=== PATIENT | female | born 1980 | race Caucasian/White ===

== ENCOUNTER 2019-12-14 14:16 | Emergency (ER) | payer OTHER, BC, SELFPAY ==
--- NOTE | ~2019-12-14 | XR_ITS ---
EXAMINATION: XR shoulder LT min 2V INDICATION: Left shoulder pain TECHNIQUE: Four views of the left shoulder are submitted. COMPARISON: None FINDINGS: Normal alignment. No fracture. Glenohumeral and acromioclavicular joint spaces are normal. Soft tissues are unremarkable. IMPRESSION: No acute osseous abnormality. Reviewed, dictated and finalized at location A. ENT MANAGER
[2019-12-14 14:59] VITALS: BP 127/93; PULSE 91; RESP 18; TEMP 37.2; O2SAT 100
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
[2019-12-14 16:19] VITALS: BP 120/80; PULSE 80; RESP 18; O2SAT 98
== END 2019-12-14 16:20 | disposition home or self-care (01) ==
PROVIDERS: Emergency Provider General Practice; PCP Obstetrics & Gynecology
DX: S16.1XXA Strain of muscle, fascia and tendon at neck level, initial encounter (principal); M25.512 Pain in left shoulder; V49.40XA Driver injured in collision with unspecified motor vehicles in traffic accident, initial encounter
CPT/HCPCS: 73030; 99283

== ENCOUNTER 2020-04-21 17:23 | Outpatient (CLI) | payer BC, SELFPAY ==
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
== END 2020-04-21 17:24 | disposition home or self-care (01) ==
PROVIDERS: Visit Provider Orthopaedic Surgery
DX: S40.012A Contusion of left shoulder, initial encounter (principal)
CPT/HCPCS: 73221

== ENCOUNTER 2020-06-13 09:35 | Outpatient (CLI) | payer BC, SELFPAY ==
--- NOTE | ~2020-06-13 | US_ITS ---
US pelvic complete w TV DATE: 06/13/2020 10:27 INDICATION: Pelvic and perineal pain TECHNIQUE: Real-time imaging via transabdominal and transvaginal approaches COMPARISON: None FINDINGS: The uterus measures approximately 11.1 cm height, 4.2 cm AP dimension. The uterus is retrof lexed. The central endometrial echo complex measures 9 mm AP dimension. The right ovary measures 2.5 x 2.7 x 1.8 cm. The left ovary measures 4.5 x 3.4 x 2.8 cm. There are mu ltiple left ovarian cysts, largest measuring 2.1 x 1.5 x 1.7 cm. There is blood flow to both ovaries. No pelvic mass or abnormal pelvic fluid collection is noted otherwise. IMPRESSION: Left ovarian cysts measuring up to 2.1 cm maximal dimension Reviewed, dictated and finalized at Location A. Reviewed, dictated and finalized at location A.
== END 2020-06-13 09:36 | disposition home or self-care (01) ==
PROVIDERS: Visit Provider Obstetrics & Gynecology
DX: R10.2 Pelvic and perineal pain (principal); N83.202 Unspecified ovarian cyst, left side
CPT/HCPCS: 76830; 76856

== ENCOUNTER 2020-06-23 01:44 | Outpatient (CLI) | payer BC, SELFPAY ==
[2020-06-23 18:23] LABS: SARS-CoV-2 RNA PCR Negative
== END 2020-06-23 01:45 | disposition home or self-care (01) ==
LOC: ANHCOVIDDT 01:45
PROVIDERS: Visit Provider Surgery
DX: Z01.812 Encounter for preprocedural laboratory examination (principal); Z20.828 Contact with and (suspected) exposure to other viral communicable diseases
CPT/HCPCS: 87635; C9803; U0003

== ENCOUNTER 2020-06-25 01:13 | Day surgery (SDC) | payer BC, SELFPAY ==
[2020-06-09 13:55] VITALS: BMI 27.9
--- NOTE | 2020-06-24 11:30 | WPDANESEPPF ---
Anes - Initial Pre Proc Eval Procedure: Operation Date: 06/25/20 12:00 Proposed Procedures p Left Inguinal Hernia Repair - Jason Schwartz MD Date/Time: 06/24/20 11:30 Surgeon: Jason Schwartz MD Pre Op Diagnosis: left inguinal hernia Patient Data Age: 40 Gender: F Height: 1.68 m Weight: 78.47 kg Allergies Allergy/AdvReac Type Severity Reaction Status Date / Time No Known Allergies Allergy Mild Verified 06/25/20 10:45 Home Medications Medication Instructions Recorded Confirmed Type thyroid (pork) 60 mg tablet 60 mg PO DAILY #90 tablet 05/07/20 06/25/20 Rx berberine-herbal comb no.18 2 cap PO DAILY 06/08/20 06/25/20 History cholecalciferol (vitamin D3) 25 25 mcg PO DAILY 06/08/20 06/25/20 History mcg (1,000 unit) capsule coenzyme Q10 30 mg capsule 30 mg PO DAILY 06/08/20 06/25/20 History niacin 500 mg tablet,extended 500 mg PO QAM 06/08/20 06/25/20 History release L.acid-L.casei-B.bif-B.esme-FOS 1 cap PO DAILY 06/09/20 06/25/20 History [Probiotic Blend] Patient hx anesthesia problems: none Family hx anesthesia problems: none PMFSH Social History Social History Smoking status: Never smoker Second hand tobacco smoke exposure: No Alcohol intake: current Substance use: never 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 Gender identity (if verbalized by the patient): Female Spiritual care concerns: No Anes - Eval Final PreProcedure Day of Procedure 06/24/20 11:30 Patient weight: overweight Heart: regular rate and rhythm Lungs: clear to auscultation and normal air movement Airway: Mallampati scale class II Neurological: alert and oriented Last oral intake: >/= 8 hours ASA classification: II Emergent: no Anesthetic plan: proceed Anesthesia type and monitoring: general GIVS and standard monitoring Informed Consent: The patient's anesthetic plan and its attendant risks and benefits were discussed with the patient/family/POA. Questions were solicited and answers provided to the satisfaction of the patient/family/POA.
[2020-06-25] MEDS: LACTATED RINGERS 1,000 ML 30 ML IV CONT ×2 (10:30→14:30)
[2020-06-25] MEDS: ACETAMINOPHEN 500 MG TABLET 1000 MG PO (10:39)
[2020-06-25] MEDS: KETOROLAC 15 MG/ML VIAL (*BKC) IV PUSH (10:39)
[2020-06-25 10:46] VITALS: BP 126/86; PULSE 106; RESP 18; TEMP 37.4; O2SAT 98
--- NOTE | 2020-06-25 11:59 | WPDHPUPDATE1 ---
History and Physical Update Update Date/Time: 06/25/20 11:59 History and Physical has been reviewed, including an updated exam of the patient. There are NO changes in the patient's condition. Risks, benefits, and alternatives have been discussed and questions answered. Patient agrees to proceed with procedure.
[2020-06-25] MEDS: ceFAZolin 2 GM/D5W 50 ML 2 GM/50 ML BAG IVPB (12:21)
[2020-06-25 13:41] VITALS: BP 105/78; PULSE 78; RESP 14; O2SAT 100
--- NOTE | 2020-06-25 13:44 | P.OP_ITS ---
Procedure Note - Detailed Date of procedure: 06/25/20 Pre-op diagnosis: left inguinal hernia Left inguinal hernia Post-op diagnosis: same Procedure performed: Left inguinal hernia repair with 6 cm Parietex hernia mesh system Description of procedure: The patient was taken to surgery and placed in a supine position. The leftt groin and genitalia were prepped and draped. The proposed incision was marked on the skin. Local anesthesia was infiltrated in the area of the anticipated incision and in the deeper subcutaneous tissues. Incision was made and dissection was carried down to Shira's fascia. We continued on beyond Shira's fascia to the external oblique aponeurosis. Cautery was used for hemostasis. The aponeurosis and external ring were exposed. Additional local was infiltrated deep to the aponeurosis in the area of the inguinal canal contents. The external oblique aponeurosis was then opened laterally and extended medially through the external ring. Care was taken to preserve the ileoinguinal nerve which was left intact. There was some fatty tissue associated with the round ligament. This was dissected back to the internal ring and then amputated and discarded. The hernia sac was fairly small and was located primarily near the internal ring. I removed a segment of round ligament. This was also discarded. I then dissected the hernia sac back to a high dissection leaving the portion of the round ligament with the hernia sac. I then dunked the hernia sac and the round ligament into the retroperitoneum. A 6 cm Parietex pon[place] of [place] was chosen and folded to form a plug. It was placed in the defect. The edges were sutured to the transversalis fascia with interrupted 3 0 Vicryl suture. I then cut the patch to the appropriate size and placed it over the inguinal canal floor. I then laid the ileoinguinal nerve over the patch. The external oblique aponeurosis was closed with interrupted 3 0 Vicryl suture. Shira's fascia was closed with interrupted 3 0 Vicryl suture. The skin was closed with subcuticular interrupted 4 0 Vicryl sutures. The wound was dressed with Exofin surgical adhesive. The patient was awakened and taken to recovery in good condition. Sponge and needle counts were correct x2. Implants: 6 cm Parietex hernia mesh system Anesthesia: MAC and local (0.5% Marcaine with Exparel) Surgeon: Jason Schwartz MD Boil Off Worker: Doreen CATHERINE Estimated blood loss (mL): 5 Drains: No Packing: No Pathology: none sent Complications: None Condition: stable Disposition: same day Findings: Indirect right inguinal hernia
[2020-06-25 14:10] VITALS: BP 104/66; PULSE 75; RESP 14; O2SAT 100
[2020-06-25 14:40] VITALS: BP 117/75; PULSE 63; RESP 20
[2020-06-25 15:10] VITALS: BP 122/70; PULSE 63; RESP 16
== END 2020-06-25 15:30 | disposition home or self-care (01) ==
PROVIDERS: Visit Provider Surgery
PROC: (CPT 49505; principal; 2020-06-25 12:00)
DX: K40.90 Unilateral inguinal hernia, without obstruction or gangrene, not specified as recurrent (principal); E03.9 Hypothyroidism, unspecified
CPT/HCPCS: 49505; A9270; C1781; C9290; J0690; J1885; J2250; J2370; J2704; J3010; J7120

== ENCOUNTER → 2021-06-09 15:47 | Outpatient (CLI) | payer BC, SELFPAY ==
--- NOTE | ~2021-06-09 | US_ITS ---
EXAMINATION: US thyroid DATE: 06/09/2021 16:01 INDICATION: Hypothyroidism. TECHNIQUE: Multiple ultrasound images of the thyroid were obtained. COMPARISON: None. FINDINGS: The right thyroid lobe measures 3.6 x 1.1 x 0.9 cm. The left thyroid lobe measures 3.0 x 0.9 x 0.7 c m. There is normal echotexture and echogenicity throughout the thyroid gland. No discrete nodules id entified. Normal vascular flow is present. IMPRESSION: 1. Normal thyroid. Reviewed, dictated and finalized at location A. IMPRESSION: 1. Normal thyroid.
== END ==
PROVIDERS: PCP Emergency Medicine; Visit Provider Emergency Medicine
DX: E03.9 Hypothyroidism, unspecified (principal)
CPT/HCPCS: 76536

== ENCOUNTER → 2022-02-25 08:26 | Outpatient (CLI) | payer BC, SELFPAY ==
--- NOTE | ~2022-02-25 | US_ITS ---
EXAMINATION: US abdomen complete DATE: 02/25/2022 09:31 INDICATION: Abnormal bilirubin levels TECHNIQUE: Multiple grayscale and Doppler ultrasound images of the abdomen were obtained. COMPARISON: None available FINDINGS: The head and body of the pancreas are normal. The pancreatic tail is obscured by bowel gas. The liver is normal with normal echogenicity and echotexture. No surface nodularity. Normal hepatope lola flow in the main portal vein. The gallbladder is normal with no abnormal wall thickening, pericho lecystic fluid or stones. The normal common bile duct measures 3 mm. There was no sonographic Pham sign. The visualized portions of the aorta and inferior vena cava are normal. The right kidney measures 10.9 x 3.7 x 4.9 cm. The left kidney measures 9.5 x 4.1 x 4.7 cm. The kidne ys demonstrate normal parenchymal echogenicity. There is no hydronephrosis. The spleen is normal in a ppearance and measures 8.0 cm. IMPRESSION: 1. No sonographic correlate for the patient's symptoms. Reviewed, dictated and finalized at location B.
== END ==
PROVIDERS: PCP Emergency Medicine; Visit Provider Emergency Medicine
DX: E80.7 Disorder of bilirubin metabolism, unspecified (principal)
CPT/HCPCS: 76700

== ENCOUNTER 2022-05-13 11:13 | Emergency (ER) | payer BC, SELFPAY ==
[2022-05-13 11:26] VITALS: BP 127/84; PULSE 71; RESP 16; TEMP 36.6; O2SAT 100
[2022-05-13 12:22] LABS: Basophils Percent Auto 0.2 % (0.2-1.2); Eosinophils Absolute Auto 0.1 K/mm3 (0-0.3); Eosinophils Percent Auto 1.1 % (0-4.4); Hematocrit 41.5 % (37.0-47.0); Hemoglobin 13.4 g/dL (12.0-15.0); Immature Granulocyte Absolute 0.03 K/mm3 (0.00-0.031); Immature Granulocyte Percent A 0.3 % (0-0.5); Lymphocytes Absolute Auto 0.78 K/mm3 (0.9-3.2); Lymphocytes Percent Auto 7.9 % (18.3-44.2); Mean Corpuscular HGB Conc 32.3 g/dl (32-36); Mean Corpuscular Hemoglobin 29.8 pg (26-34); Mean Corpuscular Volume 92.2 fl (80-100); Mean Platelet Volume 10.4 fl (7.4-10.4); Monocytes Absolute Auto 0.6 K/mm3 (0.1-0.6); Monocytes Percent Auto 5.9 % (2.6-8.5); Neutrophils Absolute Auto 8.3 K/mm3 (1.3-6.7); Neutrophils Percent Auto 84.6 % (45.5-73.1); Platelet Count Result 203 k/mm3 (150-375); Red Cell Distribution Width 12.4 % (11.5-14.5); White Blood Count 9.8 K/mm3 (4.5-10.0)
[2022-05-13 12:29] VITALS: BP 122/78; PULSE 72
[2022-05-13 12:30] VITALS: BP 129/83; PULSE 69
[2022-05-13 12:31] VITALS: BP 143/87; PULSE 103
[2022-05-13 12:32] LABS: Alanine Aminotransferase 19 U/L (6-35); Albumin Level 4.2 g/dL (3.5-5.1); Alkaline Phosphatase 68 U/L (38-126); Anion Gap 5 mmol/L (8-16); Aspartate Amino Transferase 30 U/L (14-36); Bilirubin,Total 0.7 mg/dL (0.2-1.3); Blood Urea Nitrogen 13 mg/dL (7-17); Calcium 8.6 mg/dL (8.4-10.2); Carbon Dioxide 24 mmol/L (22-30); Chloride 107 mmol/L (98-107); Estimated CRCL calculation 108 ml/min; Estimated Glomerular Filt Rate > 60; Glucose 104 mg/dL (65-110); Prothrombin Time 13.2 Seconds (11.1-14.7); Sodium 136 mmol/L (137-145)
[2022-05-13 12:33] LABS: Partial Thromboplastin Time 24.2 SECONDS (22.3-36.8)
[2022-05-13 12:38] LABS: Appearance Urine Clear (Clear); Bilirubin Urine Negative (Negative); Blood Urine Negative (Negative); Color Urine Yellow (Yellow); Glucose Urine UA Negative (Negative); Ketones Urine Negative (Negative); Leukocyte Esterase Ur Negative LEU/UL (Negative); Nitrate Urine Negative (Negative); Protein Urine Negative (Negative); Urobilinogen Urine 0.2 mg/dL (<2.0); pH Urine 6.5 (5.0-9.0)
--- NOTE | 2022-05-13 12:41 | ED.GIBLEED ---
HPI - GI Bleed General Chief complaint: GI Bleed Stated complaint: abd pain Time Seen by Provider: 05/13/22 12:18 History of Present Illness HPI Narrative: This is a 42F w/no significant PMH who presents with 4 episodes of diarrhea and bright red blood per rectum. She states last night she ate leftover tacos from [employer], and noted abdominal cramping and multiple episodes of diarrhea beginning at approximately 230 this morning. After the fourth bowel movement, she noted bright red blood with wiping without significant pain. She denies fevers, nausea, vomiting, bleeding from any other source, lightheadedness, or loss of consciousness. She denies others having eaten the same food or known sick contacts. Related Data Home Medications Medication Instructions Recorded Confirmed cholecalciferol (vitamin D3) 25 25 mcg PO DAILY 06/08/20 07/26/21 mcg (1,000 unit) capsule coenzyme Q10 30 mg capsule (CoQ-10) 30 mg PO DAILY 06/08/20 07/26/21 niacin 500 mg tablet,extended 500 mg PO QAM 06/08/20 07/26/21 release L.acidophil-L.casei-B.bifid-B.longum-FOS 1 cap PO DAILY 06/09/20 07/26/21 2 billion cell-50 mg capsule (Probiotic Blend) Allergies Allergy/AdvReac Type Severity Reaction Status Date / Time No Known Allergies Allergy Mild Verified 05/13/22 11:35 Review of Systems Review of Systems: CONSTITUTIONAL: Denies fever, chills, or sweats. EYES: Denies visual changes, redness, or discharge. ENT: Denies rhinorrhea, congestion, sore throat, or otalgia. CARDIOVASCULAR: Denies chest pain, palpitations, or edema. RESPIRATORY: Denies cough or dyspnea. GASTROINTESTINAL: +diarrhea, bright red blood per rectum. Denies abdominal pain, nausea, vomiting GENITOURINARY: Denies dysuria or hematuria. Denies vaginal bleeding SKIN: Denies rash or itching. MUSCULOSKELETAL: Denies back pain, joint pain, or myalgia. NEUROLOGIC: Denies headache, numbness, dizziness, or weakness. [facility] Past Medical History Medical History (Updated 05/13/22 @ 13:26 by Jayme Albright MD) Cervical strain, acute Contusion of shoulder, left History of blood transfusion Hypothyroid Surgical History Surgical History History of inguinal hernia repair 06/25/20 LIH repair with 6c, parietex hernia mesh system History of orthopedic surgery 20 years ago Previous section x 2 Family History Family History Grandparent Hypertension Malignant neoplasm of prostate Diabetes mellitus Cerebrovascular accident Mother Hypertension Breast cancer Crohn disease Sibling Depression Social History Social History Smoking status: Never smoker Second hand tobacco smoke exposure: No Alcohol intake: current Substance use: never 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 HEAD: Normocephalic, atraumatic. EYES: PERRLA and EOMI. ENT: Nares clear, no rhinorrhea or epistaxis. Mucous membranes moist. CHEST: Clear to auscultation. No respiratory distress. No wheezes rales or rhonchi HEART: Regular rate and rhythm. No murmur heard. Normal peripheral pulses. ABDOMEN: Soft, nontender, nondistended, normal active bowel sounds. RECAL: (Performed by female tech) external hemorrhoid noted at the 6 o'clock position without erythema or induration or active bleeding EXTREMITIES: Normal range of motion. No edema. SKIN: Warm, dry, no rash. NEURO: No focal deficits. Alert and oriented x3. PSYCH: Normal mood and affect. GI: Other: Rectal exam chaperoned by a female machine tool technician instructor, hemorrhoid noted at 6, oc'clock without signs of thrombosis. No fissure. No noted active bleeding. Course Course Lynne
--- NOTE | 2022-05-13 12:43 | PC.NURSE ---
rectal exam performed by provider with edger automatic
[2022-05-13 12:49] LABS: Add Urine Microscopic? NO
== END 2022-05-13 13:34 | disposition home or self-care (01) ==
PROVIDERS: Emergency Medicine; Emergency Provider Preventive Medicine Aerospace Medicine; PCP Emergency Medicine
DX: K64.9 Unspecified hemorrhoids (principal); R19.7 Diarrhea, unspecified; K62.5 Hemorrhage of anus and rectum; E03.9 Hypothyroidism, unspecified
CPT/HCPCS: 36415; 80053; 81003; 81025; 85025; 85610; 85730; 86850; 86900; 86901; 99283

== ENCOUNTER 2022-11-07 01:18 | Day surgery (SDC) | payer BC, SELFPAY ==
[2022-10-19 13:26] VITALS: BMI 30.2
[2022-11-07 07:40] VITALS: BP 137/90; PULSE 104; RESP 17; TEMP 36.1; O2SAT 98
[2022-11-07] MEDS: LACTATED RINGERS 1,000 ML 150 ML IV CONT (07:57)
--- NOTE | 2022-11-07 08:33 | WPDANESEPPF ---
Anes - Initial Pre Proc Eval Procedure: Operation Date: 11/07/22 09:00 Proposed Procedures p Colonoscopy - Mario Lewis MD Date/Time: 11/07/22 08:33 Surgeon: Mario Lewis MD Pre Op Diagnosis: neoplasm screening Patient Data Age: 42 Gender: F Height: 1.68 m Weight: 84.4 kg Last Vital Signs Temp 96.9 F L 11/07/22 07:40 Pulse 104 H 11/07/22 07:40 Resp 17 11/07/22 07:40 BP 137/90 11/07/22 07:40 Pulse Ox 98 11/07/22 07:40 O2 Del Method Room Air 11/07/22 07:40 Allergies Allergy/AdvReac Type Severity Reaction Status Date / Time No Known Allergies Allergy Mild Verified 11/07/22 07:38 Home Medications Medication Instructions Recorded Confirmed Type cholecalciferol (vitamin D3) 25 25 mcg PO DAILY 06/08/20 11/07/22 History mcg (1,000 unit) capsule drospirenone (contraceptive) 4 mg 4 mg PO DAILY 90 days #90 tabs 06/13/22 11/07/22 Rx (28) tablet (Slynd) multivitamin 1 tablet PO DAILY 08/22/22 11/07/22 History pollens extract 160 mg tablet 320 mg PO DAILY 08/22/22 11/07/22 History (Relizen) venlafaxine 150 mg 150 mg PO DAILY 08/22/22 11/07/22 History capsule,extended release 24 hr thyroid (pork) 15 mg tablet See Rx Instructions .Route 11/07/22 11/07/22 Rx ([place] Thyroid) .COMPLEX #90 tabs thyroid (pork) 60 mg tablet See Rx Instructions .Route 11/07/22 11/07/22 Rx ([place] Thyroid) .COMPLEX #90 tabs Patient hx anesthesia problems: none Family hx anesthesia problems: none Results Review: All pre-operative results and documents have been reviewed as part of the pre-operative evaluation. [facility] Past Medical History Medical History Cervical strain, acute Contusion of shoulder, left Depression History of blood transfusion Hypothyroidism (acquired) Left inguinal hernia Vitamin D deficiency disease Surgical History Surgical History History of inguinal hernia repair 06/25/20 LIH repair with 6c, parietex hernia mesh system History of orthopedic surgery 20 years ago Previous section x 2 Family History Family History Grandparent Hypertension Malignant neoplasm of prostate Diabetes mellitus Cerebrovascular accident Mother Hypertension Breast cancer Crohn disease Sibling Depression Social History Social History Smoking status: Never smoker Second hand tobacco smoke exposure: No Alcohol intake: never Substance use: never Substance use type: does not use Living arrangements: with family 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 Informed Consent: The patient's anesthetic plan and its attendant risks and benefits were discussed with the patient/family/POA. Questions were solicited and answers provided to the satisfaction of the patient/family/POA.
--- NOTE | 2022-11-07 08:40 | PM.HPGS ---
History of Present Illness History of Present Illness Consent: Risks, benefits, and alternatives have been discussed and questions answered. Patient agrees to proceed with procedure. Chief complaint: neoplasm screening Narrative: Deanna Rasmussen is a 42 year old female with history of IBS, never had colonoscopy. Review of Systems Constitutional: Constitutional: Denies headache(s) and Denies weakness Eyes: Eyes: Denies blurry vision ENT: Reports Normal hearing present, Denies headache(s) and Denies neck pain Cardiovascular: Cardiovascular: Denies chest pain and Denies dyspnea Respiratory: Respiratory: Denies dyspnea Gastrointestinal: Gastrointestinal: Reports no additional gastrointestinal complaints Genitourinary: Genitourinary: Denies dysuria Musculoskeletal: Musculoskeletal: Denies neck pain Integumentary/Breasts: Skin/Breast: Denies dry skin Neurologic: Reports Normal hearing present, Denies headache(s) and Denies weakness Psychiatric: Psychiatric: Denies anxiety Endocrine: Endocrine: Denies change in body appearance Hematologic/Lymphatic: Hematologic/Lymphatic: Denies easy bleeding Allergic/Immunologic: Allergic/Immunologic: Denies urticaria PMFSH Past Medical History Medical History (Updated 11/07/22 @ 08:42 by Mario Lewis MD) Cervical strain, acute Colon cancer screening Contusion of shoulder, left Depression History of blood transfusion Hypothyroidism (acquired) IBS (irritable bowel syndrome) Left inguinal hernia Vitamin D deficiency disease Surgical History Surgical History History of inguinal hernia repair 06/25/20 LIH repair with 6c, parietex hernia mesh system History of orthopedic surgery 20 years ago Previous section x 2 Family History Family History Grandparent Hypertension Malignant neoplasm of prostate Diabetes mellitus Cerebrovascular accident Mother Hypertension Breast cancer Crohn disease Sibling Depression Social History Social History Smoking status: Never smoker Second hand tobacco smoke exposure: No Alcohol intake: never Substance use: never Substance use type: does not use Living arrangements: with family 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 Gender identity (if verbalized by the patient): Female Spiritual care concerns: No Meds Home Medications and Allergies Home Medications Medication Instructions Recorded Confirmed Type cholecalciferol (vitamin D3) 25 25 mcg PO DAILY 06/08/20 11/07/22 History mcg (1,000 unit) capsule drospirenone (contraceptive) 4 mg 4 mg PO DAILY 90 days #90 tabs 06/13/22 11/07/22 Rx (28) tablet (Slynd) multivitamin 1 tablet PO DAILY 08/22/22 11/07/22 History pollens extract 160 mg tablet 320 mg PO DAILY 08/22/22 11/07/22 History (Relizen) venlafaxine 150 mg 150 mg PO DAILY 08/22/22 11/07/22 History capsule,extended release 24 hr thyroid (pork) 15 mg tablet See Rx Instructions .Route 11/07/22 11/07/22 Rx ([place] Thyroid) .COMPLEX #90 tabs thyroid (pork) 60 mg tablet See Rx Instructions .Route 11/07/22 11/07/22 Rx ([place] Thyroid) .COMPLEX #90 tabs Allergies Allergy/AdvReac Type Severity Reaction Status Date / Time No Known Allergies Allergy Mild Verified 11/07/22 07:38 Vital Signs Vital Signs - 24 hr 11/07/22 07:40 Temperature 96.9 F L Pulse Rate 104 H Respiratory Rate 17 Blood Pressure 137/90 Pulse Oximetry 98 Oxygen Delivery Room Air Exam Const: General: comfortable and no acute distress HENMT: Face/Nose/Sinus: Normal nares present Eyes: General: appearance normal, both eyes and all related structures Neck: Neck: no JVD Resp: Auscultation: clear to auscultation bilaterally Cardio: Rate: regular rate Rhythm: regular rhythm GI: Inspect
[2022-11-07 09:01] VITALS: BP 107/77; PULSE 91; RESP 24; O2SAT 100
[2022-11-07 09:11] VITALS: BP 114/81; PULSE 78; RESP 23; O2SAT 100
[2022-11-07 09:21] VITALS: BP 121/99; PULSE 73; RESP 17; O2SAT 100
== END 2022-11-07 09:28 | disposition home or self-care (01) ==
PROVIDERS: PCP Emergency Medicine; Visit Provider Internal Medicine Gastroenterology
PROC: 0DJD8ZZ Inspection of Lower Intestinal Tract, Via Natural or Artificial Opening Endoscopic (ICD-10-PCS; CPT 45378; principal; 2022-11-07 09:00)
DX: Z12.11 Encounter for screening for malignant neoplasm of colon (principal); K58.9 Irritable bowel syndrome, unspecified; E03.9 Hypothyroidism, unspecified; E55.9 Vitamin D deficiency, unspecified; F32.A Depression, unspecified; E66.9 Obesity, unspecified; Z68.30 Body mass index [BMI] 30.0-30.9, adult
CPT/HCPCS: 45378; J2704; J7120

== ENCOUNTER → 2023-01-05 10:45 | Outpatient (CLI) | payer BC, SELFPAY ==
--- NOTE | ~2023-01-05 | US_ITS ---
Pelvic ultrasound. Clinical History: Irregular menses Technique: Realtime transabdominal and transvaginal scanning of the pelvis was performed. Color flow Doppler and Doppler spectral analysis were performed. Findings: The uterus is anteverted. The endometrial stripe has a thickness of 4 mm. Probable partial ly exophytic fibroid at the anterior aspect measures 2.6 x 2.0 x 1.7 cm. Additional probable 0.9 cm i ntramural fibroid present. The right ovary measures 2.7 x 2.4 x 1.8 cm. No significant right ovarian or adnexal mass is seen. The left ovary measures 2.4 x 2.8 x 1.5 cm. No significant left ovarian or adnexal mass is seen. Vascular flow present in both ovaries on Doppler spectral analysis. There is no evidence of free fluid in the cul de sac. Impression: Small uterine fibroids, as above. Reviewed, dictated and finalized at [facility]. [employer]GER Impression: Small uterine fibroids, as above.
== END ==
PROVIDERS: PCP Emergency Medicine; Visit Provider Obstetrics & Gynecology
DX: N92.6 Irregular menstruation, unspecified (principal); D25.9 Leiomyoma of uterus, unspecified
CPT/HCPCS: 76830; 76856

== ENCOUNTER 2023-06-23 00:20 | Day surgery (SDC) | payer BC, SELFPAY ==
[2023-06-20 15:50] VITALS: BMI 25.8
--- NOTE | 2023-06-20 15:54 | PC.NURSE ---
Report to the Outpatient Waiting Room, entrance under the green pavilion located off [facility], at time 0830 on date 06/23/23. Planned Procedure Time: 1030. Time changes happen often and if your time is changed the preop area will call you the afternoon before. - You and your visitor will be asked to self-screen and do not enter if you have any COVID symptoms. - A mask is optional within the hospital at this time. Patients may have clear liquids (water, carbonated beverages, clear teas, apple juice) until 3 hours prior to surgery with a maximum of 20 ounces. - No food from midnight until time of surgery Take the following medications with a SIP of water the morning of surgery: THYROID DO NOT STOP ANY OF YOUR OTHER PRESCRIPTION MEDICATIONS PRIOR TO SURGERY ?EXCEPT THE FOLLOWING Medications to discontinue per physician: VITAMINS/SUPPLEMENTS Date to take last dose: NO MORE UNTIL AFTER SURGERY Please no make-up, nail maltese, hairspray, perfume, deodorant, or body powder the day of surgery. No jewelry (including any body piercings) or valuables the day of surgery, leave them at home. Please take a shower or bath the night before, or the morning of, surgery with an antibacterial soap. Wear comfortable, loose fitting clothing. - Jewelry must be removed prior to entering the operating room. Rings and piercings that are not removed may be cut off. - The hospital will not accept responsibility for valuables. - Please leave all valuables, including medications, at home the day of surgery. If you are going home after surgery, a licensed sales route driver helper must drive you home. - NO public transportation without another adult if you receive anesthesia. - We recommend that an adult stay with you for 24 hours following discharge. - We also recommend that you do not drive, make important decision, drink alcoholic beverages, or take any drugs that were not prescribed by your health care provider for at least 24 hours after your discharge time. Follow any additional instructions given to you from your surgeon. If you or anyone in your household have experienced Covid symptoms in the past week, please notify your surgeon or the nurse liaison at the phone number below for possible testing. Telephone instructions given to PT - SERGIO ARIAS and asked if any additional questions and then verbalized understanding. Patient advised to call surgeon office or pre surgery nurse liaison [phone] if any additional questions.
[2023-06-23] VITALS (8 sets, daily range): BP systolic 114–140; BP diastolic 74–93; PULSE 76–109; RESP 12–20; TEMP 36.4–36.5; O2SAT 100
--- NOTE | 2023-06-23 08:23 | PM.IMHP ---
H&P: HPI History of Present Illness Date/Time: 06/23/23 08:23 Chief Complaint: Irregular bleeding and satisfied parity Narrative: Patient with a history of abnormal uterine bleeding for several years that has not completely resolved. Has also had some improvement off of hormonal control but not complete resolution. She continues to have breakthrough bleeding. She had some improvement with progesterone only pills but no resolved. Declines IUD. She had a recent in endometrial biopsy with minimal endometrial tissue. She also has satisfied parity and request sterilization at same time. Declines all other nonpermanent forms of contraception. She is aware of possibility of needing to take hormonal options in the future for non contraception indications. Review of Systems Review of Systems: All systems reviewed & are unremarkable except as noted in HPI and below Constitutional: Constitutional: Reports no additional constitutional complaints and Denies headache(s) Eyes: Eyes: Denies spots in vision ENT: Reports system reviewed and no additional complaints, except as documented and Denies headache(s) Cardiovascular: Cardiovascular: Denies chest pain and Denies dyspnea Respiratory: Respiratory: Denies dyspnea Gastrointestinal: Gastrointestinal: Reports no additional gastrointestinal complaints Genitourinary: Genitourinary: Reports amenorrhea Musculoskeletal: Musculoskeletal: Reports no additional musculoskeletal complaints Integumentary/Breasts: Skin/Breast: Denies breast mass and Denies rash Neurologic: Denies headache(s) Psychiatric: Psychiatric: Reports no additional psychiatric complaints PMFSH Past Medical History Medical History Cervical strain, acute Colon cancer screening Contusion of shoulder, left Depression History of blood transfusion Hypothyroidism (acquired) IBS (irritable bowel syndrome) Left inguinal hernia Vitamin D deficiency disease Surgical History Surgical History History of inguinal hernia repair 06/25/20 LIH repair with 6c, parietex hernia mesh system History of orthopedic surgery 20 years ago Previous section x 2 Family History Family History Grandparent Hypertension Malignant neoplasm of prostate Diabetes mellitus Cerebrovascular accident Mother Hypertension Breast cancer Crohn disease Sibling Depression Social History Social History Smoking status: Never smoker Second hand tobacco smoke exposure: No Alcohol intake: never Substance use: never Substance use type: does not use Lack of Transportation: No Lack of Food: Never True Current Housing: I Have Housing Concerned About Future Housing: No Difficulty Paying Gas/Electric Bills: No Difficulty Paying for Meds: No Currently Unemployed: No Education: Bachelor's Degree Difficulty w/ Childcare or Family Care: No Living arrangements: with family 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 Gender identity (if verbalized by the patient): Female Spiritual care concerns: No Meds Home Medications and Allergies Home Medications Medication Instructions Recorded Confirmed Type cholecalciferol (vitamin D3) 25 25 mcg PO DAILY 06/08/20 06/20/23 History mcg (1,000 unit) capsule multivitamin 1 tablet PO DAILY 08/22/22 06/20/23 History pollens extract 160 mg tablet 320 mg PO DAILY 08/22/22 06/20/23 History (Relizen) venlafaxine 150 mg 150 mg PO HS 08/22/22 06/20/23 History capsule,extended release 24 hr thyroid (pork) 15 mg tablet See Rx Instructions .Route 05/23/23 06/20/23 Rx ([place] Thyroid) .COMPLEX #90 tabs thyroid (pork) 60 mg tablet 60 mg PO DAILY #90 tabs 05/23/23 06/20/23 Rx (Eugene Thyroid)
--- NOTE | 2023-06-23 09:03 | WPDHPUPDATE1 ---
History and Physical Update Update Date/Time: 06/23/23 09:03 History and Physical has been reviewed, including an updated exam of the patient. There are NO changes in the patient's condition. Risks, benefits, and alternatives have been discussed and questions answered. Patient agrees to proceed with procedure.
[2023-06-23] MEDS: ACETAMINOPHEN 500 MG TABLET 1000 MG PO (09:05)
[2023-06-23] MEDS: LACTATED RINGERS 1,000 ML 30 ML IV CONT ×2 (09:15→11:34)
[2023-06-23] MEDS: KETOROLAC 15 MG/ML VIAL (*BKC) IV PUSH (09:16)
[2023-06-23] MEDS: BUPIVACAINE/EPINEPHRINE 0.5% 50 ML VIAL 10 ML INFILTRATE (10:29)
[2023-06-23] MEDS: fentaNYL CITRATE INJ (*CRX) 100 MCG/2 ML VIAL 25 MCG IV PUSH ×2 (11:54→11:59)
--- NOTE | 2023-06-23 12:17 | P.OP_ITS ---
Procedure Note - Detailed Date of Procedure 06/24/23 Pre-op Diagnosis irregular bleeding, Desires Sterilization Post-op Diagnosis Same Procedure Performed 1. Laparoscopic bilateral salpingectomy 2. Diagnostic hysteroscopy dilation and curretage Surgeon Petey Campos MD Anesthesia General Indications Patient with history of irregular bleeding and desire for permanent sterilization. Findings Uterus with dense adhesion to anterior abdomen. Normal fallopian tubes and ovaries bilaterally. Description of Procedure After informed consent was obtained patient was taken to the operating room and general endotracheal anesthesia was administered. She was placed in low lithotomy need prep prepped sterile fashion. Attention was turned to the vagina speculum inserted single-tooth tenaculum placed on anterior lip of the cervix. [place] uterine manipulator placed into the cervical canal. The speculum was removed. Attention was then turned to the abdomen. With sterile gloves a vertical incision was made at the umbilicus and a Veress needle was inserted into the abdomen confirmation into the abdomen obtained with free flow of fluid and normal peritoneal pressures. A pneumoperitoneum of 15 mm per mercury was obtained. The 5 mm port was inserted under laparoscopic visualization. Patient was placed in Trendelenburg position. Attention was turned to the left side of the abdomen and a 5 mm port was ins erted under laparoscopic visualization. The pelvic organs were visualized. Attention was turned to the right side of the abdomen and another 5 mm port was inserted under laparoscopic visualization. Using the LigaSure the right fallopian tube was excised to near the entrance to the uterus. This was removed through the port. Attention was then turned to the left fallopian tube which was grabbed at the distal end and cauterized from the mesosalpinx to within a cm of the entrance to the entrance to the uterus. The fallopian tube was removed through the 5 mm port. Hemostasis was noted at both sites. Patient was taken out of Trendelenburg position the pneumoperitoneum was released and the skin incisions were closed in a subcuticular fashion with 4 O Vicryl. Attention was then turned to vagina. Uterine manipulator removed. Uterus sound to 7 cm. The hysteroscopy was inserted and the cervix was hydrodilated while advancing the camera into the uterine cavity. Uterine cavity was normal. No proliferative endometrial tissue seen. Curretage performed with minimal tissue. She was extubated in OR. Sponge count correct. She was taken to recovery room in stable condition. Estimated Blood Loss 5 Drains No Packing No Pathology Yes (1. Right and left fallopian tubes 2. Scant endometrial curretings) Complications No immediate complications Condition Stable Disposition Same day [facility] Billing Surgery - Charge Forward: Surgery Billing
--- NOTE | 2023-06-23 13:22 | PM.OP ---
Procedure Note - Brief Procedure Note - Brief Date of procedure: 06/23/23 irregular bleeding, Desires Sterilization Procedure performed: Laparoscopic bilateral salpingectomy. Diagnostic hysteroscopy with dilation and curretage. Surgeon: Petey Campos MD Anesthesia: GETA Drains: No Packing: No Pathology: Yes (Right and left fallopian tube 2. Scant endometrial curretings.) Complications: No immediate complications Condition: Stable Disposition: Same day
== END 2023-06-23 13:10 | disposition home or self-care (01) ==
PROVIDERS: PCP Emergency Medicine; Visit Provider Obstetrics & Gynecology
PROC: 0U5B8ZZ Destruction of Endometrium, Via Natural or Artificial Opening Endoscopic (ICD-10-PCS; CPT 58563; principal; 2023-06-23 10:30)
PROC: (CPT 49320; 2023-06-23 10:30)
DX: N92.6 Irregular menstruation, unspecified (principal); Z30.2 Encounter for sterilization; N73.6 Female pelvic peritoneal adhesions (postinfective); N83.8 Other noninflammatory disorders of ovary, fallopian tube and broad ligament; N72 Inflammatory disease of cervix uteri; E03.9 Hypothyroidism, unspecified; F32.A Depression, unspecified; E55.9 Vitamin D deficiency, unspecified
CPT/HCPCS: 58661; 58558; 88302; 88305; A9270; J0330; J1100; J1885; J2250; J2405; J2704; J3010; J7120

== ENCOUNTER 2024-09-16 16:01 | Emergency (ER) | payer BC, SELFPAY ==
--- NOTE | ~2024-09-16 | CT_ITS ---
EXAMINATION: CT abdomen pelvis w con DATE: 09/16/2024 20:51 INDICATION: Left lower quadrant abdominal pain. TECHNIQUE: Computed tomography (CT) of the abdomen and pelvis was performed with 100 mL Omnipaque 350 intravenous contrast. Automated exposure control and iterative reconstruction technique were employe d. The dose-length product was 556.85 mGy-cm. COMPARISON: None. FINDINGS: The visualized portions of the lung bases demonstrate mild atelectasis. No pleural effusion . The heart size is normal. No pericardial effusion. There is a 5 mm cyst in the liver. The gallbladd er, spleen, pancreas, adrenal glands, and kidneys are normal. There are no dilated loops of bowel. Th ere is a large volume of stool in the colon. The appendix is not visualized. There are no pathologica lly enlarged lymph nodes. There are fibroids in the uterus measuring up to 17 mm. There is no free in traperitoneal fluid. There is mild thoracic and lumbar spondylosis. IMPRESSION: 1. Uterine fibroids. Reviewed, dictated and finalized at location A. TAL SPECIALIST IMPRESSION: 1. Uterine fibroids.
--- NOTE | ~2024-09-16 | US_ITS ---
EXAMINATION: US transvaginal DATE: 09/16/2024 22:09 INDICATION: Left lower quadrant abdominal pain. TECHNIQUE: Multiple transvaginal sonographic images of the pelvis were obtained. COMPARISON: Ultrasound pelvis 01/05/2023 FINDINGS: The uterus measures 9.8 x 4.7 x 5.4 cm. There is no free fluid in the pelvis. The endometrial complex measures 11 mm in thickness. The right ovary measures 3.0 x 1.8 x 2.7 cm. The left ovary measures 3. 0 x 1.6 x 1.6 cm. There is normal vascular flow in the ovaries. IMPRESSION: 1. Normal pelvis. Reviewed, dictated and finalized at location A. FITTER IMPRESSION: 1. Normal pelvis.
[2024-09-16 16:05] VITALS: BP 145/93; PULSE 93; RESP 15; TEMP 36.4; O2SAT 100
--- NOTE | 2024-09-16 18:03 | ED_ITS ---
HPI - Abdominal Pain General Chief Complaint: Abdominal Pain <TONO Kaiser Last Filed: 09/16/24 18:10> Stated Complaint: left side abd pain <TONO Kaiser Last Filed: 09/16/24 18:10> Time Seen by Provider: 09/16/24 18:03 <TONO Kaiser Last Filed: 09/16/24 18:10> Focused HPI: Patient is a 44 y/o female who presents to the ED with c/o LLQ ABD pain. Patient reports pain was intermittent for the past 1 week, but became more constant and severe today. Patient has not taken anything for pain. Denies hx of similar pain. Reported having intermittent lightheadedness today, but denies N/V/D, constipation, dysuria, hematuria, hx of diverticulitis. Denies back pain, hx of kidney stones. Hx of ovarian cyst, but states this resolved on its own. Does mention that prior to when pain began, patient had fallen onto a box she was carrying, but denied direct trauma to her abdomen. GENERAL: Well-appearing, well-nourished, and in no acute distress. HEAD: Normocephalic, atraumatic. CHEST: Clear to auscultation. ?No respiratory distress. HEART: Regular rate and rhythm.? ABD: Focal TTP in LLQ. No rebound. Normoactive BS. NEURO: ?Alert and oriented x3. Patient screened in triage and initial orders placed.? ?Additional care and disposition to be based upon?diagnostic testing and treatment. <TONO Kaiser Last Filed: 09/16/24 18:10> Source: patient <TONO Kaiser Last Filed: 09/16/24 18:10> Mode of arrival: ambulatory <TONO Kaiser Last Filed: 09/16/24 18:10> Limitations: no limitations <TONO Kaiser Last Filed: 09/16/24 18:10> History of Present Illness HPI narrative: Agree with the above triage note. <TONO Arora Last Filed: 09/16/24 22:36> Related Data Home Medications: Home Medications Medication Instructions Recorded Confirmed cholecalciferol (vitamin D3) 25 25 mcg PO DAILY 06/08/20 07/31/24 mcg (1,000 unit) capsule multivitamin 1 tablet PO DAILY 08/22/22 07/31/24 pollens extract 160 mg tablet 320 mg PO DAILY 08/22/22 07/31/24 (Relizen) venlafaxine 150 mg 150 mg PO HS 08/22/22 07/31/24 capsule,extended release 24 hr <Genesis Green PA-C - Last Filed: 09/16/24 18:10> Allergies/Adverse Reactions: Allergies Allergy/AdvReac Type Severity Reaction Status Date / Time No Known Allergies Allergy Mild Verified 09/16/24 16:02 <Genesis Green PA-C - Last Filed: 09/16/24 18:10> Review of Systems Review of Systems: All systems reviewed & are unremarkable except as noted in HPI and below <Alba Alatorre PA-C - Last Filed: 09/16/24 22:36> [facility] Past Medical History Medical History: Medical History Cervical strain, acute Colon cancer screening Contusion of shoulder, left Depression History of blood transfusion Hypothyroidism (acquired) IBS (irritable bowel syndrome) Left inguinal hernia Vitamin D deficiency disease <Genesis Green PA-C - Last Filed: 09/16/24 18:10> Surgical History Surgical History: Surgical History History of bilateral salpingectomy History of D&C History of hysteroscopy History of inguinal hernia repair 06/25/20 LIH repair with 6c, parietex hernia mesh system History of orthopedic surgery 20 years ago Previous section x 2 <Genesis Green PA-C - Last Filed: 09/16/24 18:10> Family History Family History: Family History Grandparent Hypertension Malignant neoplasm of prostate Diabetes mellitus Cerebrovascular accident Mother Hypertension Breast cancer Crohn disease Sibling Depression <Genesis Green PA-C - Last Filed: 09/16/24 18:10> Social History Social History: Social History Smoking status: Never smoker Second hand tobacco smoke exposure: No Alcohol intake: never Substance use: never Substance use type: does not use Lack of Transportation: No Lack of Food: Never True Current Housing: I Have Housing Concerned About Future Housing: No Difficulty Paying Gas/Electric Bills: No Difficulty Paying for Meds: No Currently Unemployed: No Education: Bachelor's Degree Difficulty w/ Childcare or Family Care: No Living arrangements: with family 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 HEAD: Normocephalic, atraumatic. EYES: EOMI. ENT: Nares clear, no rhinorrhea or epistaxis. Mucous membranes moist. NECK: Supple. CHEST: Clear to auscultation. No respiratory distress. HEART: Regular rate and rhythm. No murmur heard. Normal peripheral pulses. ABDOMEN: Normoactive bowel sounds. Abdomen soft tenderness in the left lower quadrant. No rebound, guarding rigidity. No CVA tenderness. EXTREMITIES: Normal range of motion. No edema. SKIN: Warm, dry, no rash. NEURO: No focal deficits. Alert and oriented x3 <Alba Alatorre PA-C - Last Filed: 09/16/24 22:36> Course Vital Signs Vital signs: Vital Signs Temperature 97.5 F L 09/16/24 16:05 Pulse Rate 93 09/16/24 16:05 Respiratory Rate 15 09/16/24 16:05 Blood Pressure 145/93 H 09/16/24 16:05 Pulse Oximetry 100 09/16/24 16:05 Oxygen Delivery Room Air 09/16/24 16:05 Temperature 97.5 F L 09/16/24 16:05 Pulse Rate 75 09/16/24 22:08 Respiratory Rate 15 09/16/24 22:08 Blood Pressure 133/91 H 09/16/24 22:08 Pulse Oximetry 100 09/16/24 22:08 Oxygen Delivery Room Air 09/16/24 16:05 <Genesis Green PA-C - Last Filed: 09/16/24 18:10> Vital Signs Temperature 97.5 F L 09/16/24 16:05 Pulse Rate 93 09/16/24 16:05 Respiratory Rate 15 09/16/24 16:05 Blood Pressure 145/93 H 09/16/24 16:05 Pulse Oximetry 100 09/16/24 16:05 Oxygen Delivery Room Air 09/16/24 16:05 Temperature 97.5 F L 09/16/24 16:05 Pulse Rate 75 09/16/24 22:08 Respiratory Rate 15 09/16/24 22:08 Blood Pressure 133/91 H 09/16/24 22:08 Pulse Oximetry 100 09/16/24 22:08 Oxygen Delivery Room Air 09/16/24 16:05 <Alba Alatorre PA-C - Last Filed: 09/16/24 22:36> MDM - Abdominal Pain MDM Narrative Medical decision making narrative: MSE by LETICIA in triage. <TONO Kaiser Last Filed: 09/16/24 18:10> MSE by LETICIA in triage. 44-year-old female presents to the emergency department for left lower quadrant abdominal pain for 1 week. Triage vitals are stable. Exam is significant for tenderness of the left lower quadrant. She is afebrile nontoxic appearing. Workup shows no leukocytosis, normal chemistries. Normal lipase. Urinalysis is unremarkable. is negative. CT abdomen pelvis shows uterine fibroids. Transvaginal ultrasound shows no acute findings, there is good vascular flow to both ovaries. Patient was updated on workup. She received Tylenol after triage reports improvement. No etiology for symptoms at this time. Advised to follow-up with her PCP and OBGN and discussed strict ED return precautions. She is agreeable with the plan verbalized understanding. Discharged in stable condition. <Alba Alatorre PA-C - Last Filed: 09/16/24 22:36> Lab Data Result diagrams: 09/16/24 18:12 09/16/24 18:12 <Genesis Green PA-C - Last Filed: 09/16/24 18:10> Labs: Lab Results 09/16/24 09/16/24 Range/Units 18:12 18:25 WBC 7.3 (4.5-10.0) K/mm3 RBC 4.27 (4.2-5.4) M/mm3 Hgb 13.2 (12.0-15.0) g/dL Hct 39.8 (37.0-47.0) % MCV 93.2 (80-100) fl MCH 30.9 (26-34) pg MCHC 33.2 (32-36) g/dl RDW 12.9 (11.5-14.5) % Plt Count 229 (150-375) k/mm3 MPV 9.6 (7.4-10.4) fl Immature Gran % (Auto) 0.3 (0-0.5) % Neut % (Auto) 64.4 (45.5-73.1) % Lymph % (Auto) 22.1 (18.3-44.2) % Blair % (Auto) 8.9 H (2.6-8.5) % Eos % (Auto) 3.8 (0-4.4) % Baso % (Auto) 0.5 (0.2-1.2) % Lymph # (Auto) 1.62 (0.9-3.2) K/mm3 Blair # (Auto) 0.7 H (0.1-0.6) K/mm3 Eos # (Auto) 0.3 (0-0.3) K/mm3 Baso # (Auto) 0.0 (0.0-0.1) K/mm3 Abs Immat Gran (auto) 0.02 (0.00-0.031) K/mm3 Absolute Neuts (auto) 4.7 (1.3-6.7) K/mm3 Absolute Nucleated RBC 0.000 (0.0-0.012) K/mm3 Nucleated RBC % 0.0 (0.0-0.2) % Sodium 138 (137-145) mmol/L Potassium 4.0 (3.4-5.0) mmol/L Chloride 105 (98-107) mmol/L Carbon Dioxide 30 (22-30) mmol/L Anion Gap 3 L (4-12) mmol/L BUN 15 (7-17) mg/dL Creatinine 0.70 (0.7-1.0) mg/dL Estim Creat Clear Calc 82 ml/min Estimated GFR > 60 (59 - ) Glucose 85 (65-110) mg/dL Calcium 9.1 (8.4-10.2) mg/dL Total Bilirubin 0.6 (0.2-1.3) mg/dL AST 28 (14-36) U/L ALT 16 (6-35) U/L Alkaline Phosphatase 61 (38-126) U/L Total Protein 7.0 (6.3-8.2) g/dL Albumin 4.3 (3.5-5.1) g/dL Lipase 78 (23-300) U/L Urine Color Yellow (Yellow) Urine Appearance Clear (Clear) Urine pH 7.0 (5.0-9.0) Ur Specific Gladys 1.012 (1.001-1.035) Urine Protein Negative (Negative) mg/dL Urine Glucose (UA) Negative (Negative) mg/dL Urine Ketones Negative (Negative) mg/dL Ur Blood (Man) Negative (Negative) Urine Nitrate Negative (Negative) Urine Bilirubin Negative (Negative) Urine Urobilinogen 0.2 (<2.0) mg/dL Leukocyte Esterase Rfl Negative (Negative) JAXON/UL Urine Test Negative <Genesis Green PA-C - Last Filed: 09/16/24 18:10> Lab Results 09/16/24 09/16/24 Range/Units 18:12 18:25 WBC 7.3 (4.5-10.0) K/mm3 RBC 4.27 (4.2-5.4) M/mm3 Hgb 13.2 (12.0-15.0) g/dL Hct 39.8 (37.0-47.0) % MCV 93.2 (80-100) fl MCH 30.9 (26-34) pg MCHC 33.2 (32-36) g/dl RDW 12.9 (11.5-14.5) % Plt Count 229 (150-375) k/mm3 MPV 9.6 (7.4-10.4) fl Immature Gran % (Auto) 0.3 (0-0.5) % Neut % (Auto) 64.4 (45.5-73.1) % Lymph % (Auto) 22.1 (18.3-44.2) % Blair % (Auto) 8.9 H (2.6-8.5) % Eos % (Auto) 3.8 (0-4.4) % Baso % (Auto) 0.5 (0.2-1.2) % Lymph # (Auto) 1.62 (0.9-3.2) K/mm3 Blair # (Auto) 0.7 H (0.1-0.6) K/mm3 Eos # (Auto) 0.3 (0-0.3) K/mm3 Baso # (Auto) 0.0 (0.0-0.1) K/mm3 Abs Immat Gran (auto) 0.02 (0.00-0.031) K/mm3 Absolute Neuts (auto) 4.7 (1.3-6.7) K/mm3 Absolute Nucleated RBC 0.000 (0.0-0.012) K/mm3 Nucleated RBC % 0.0 (0.0-0.2) % Sodium 138 (137-145) mmol/L Potassium 4.0 (3.4-5.0) mmol/L Chloride 105 (98-107) mmol/L Carbon Dioxide 30 (22-30) mmol/L Anion Gap 3 L (4-12) mmol/L BUN 15 (7-17) mg/dL Creatinine 0.70 (0.7-1.0) mg/dL Estim Creat Clear Calc 82 ml/min Estimated GFR > 60 (59 - ) Glucose 85 (65-110) mg/dL Calcium 9.1 (8.4-10.2) mg/dL Total Bilirubin 0.6 (0.2-1.3) mg/dL AST 28 (14-36) U/L ALT 16 (6-35) U/L Alkaline Phosphatase 61 (38-126) U/L Total Protein 7.0 (6.3-8.2) g/dL Albumin 4.3 (3.5-5.1) g/dL Lipase 78 (23-300) U/L Urine Color Yellow (Yellow) Urine Appearance Clear (Clear) Urine pH 7.0 (5.0-9.0) Ur Specific Gladys 1.012 (1.001-1.035) Urine Protein Negative (Negative) mg/dL Urine Glucose (UA) Negative (Negative) mg/dL Urine Ketones Negative (Negative) mg/dL Ur Blood (Man) Negative (Negative) Urine Nitrate Negative (Negative) Urine Bilirubin Negative (Negative) Urine Urobilinogen 0.2 (<2.0) mg/dL Leukocyte Esterase Rfl Negative (Negative) JAXON/UL Urine Test Negative <Alba Alatorre PA-C - Last Filed: 09/16/24 22:36> Imaging Data Radiologist's impression: ITS Impressions Abdomen/Pelvis CT 09/16/24 20:59 IMPRESSION: 1. Uterine fibroids. Transvaginal US 09/16/24 22:09 IMPRESSION: 1. Normal pelvis. <TONO Kaiser Last Filed: 09/16/24 18:10> ITS Impressions Abdomen/Pelvis CT 09/16/24 20:59 IMPRESSION: 1. Uterine fibroids. Transvaginal US 09/16/24 22:09 IMPRESSION: 1. Normal pelvis. <Alba Alatorre PA-C - Last Filed: 09/16/24 22:36> Discharge Plan Discharge Clinical Impression: Abdominal pain, LLQ Fibroid, uterine Qualifiers: Uterine leiomyoma location: unspecified location Qualified Code(s): D25.9 - Leiomyoma of uterus, unspecified <TONO Kaiser Last Filed: 09/16/24 18:10> Patient Disposition: Home, Self-Care <TONO Kaiser Last Filed: 09/16/24 18:10> Condition: Stable <TONO Kaiser Last Filed: 09/16/24 18:10> Instructions: Antibiotic Form, Abdominal Pain (ED) <TONO Kaiser Last Filed: 09/16/24 18:10> Additional Instructions: Your evaluated in the emergency department for left lower quadrant abdo jude pain. Your workup here is reassuring other than showing uterine fibroids. Please follow-up with your primary care provider and OBGYN. Return to the emergency department if you develop worsening or changing symptoms. Take Tylenol ibuprofen as needed for pain. <Genesis Green PA-C - Last Filed: 09/16/24 18:10> Prescriptions: No Action thyroid (pork) [[place] Thyroid] 90 mg tablet 90 mg PO DAILY Qty: 90 2RF cholecalciferol (vitamin D3) 25 mcg (1,000 unit) capsule 25 mcg PO DAILY multivitamin Tablet 1 tablet PO DAILY venlafaxine 150 mg capsule,extended release 24hr 150 mg PO HS Relizen 160 mg tablet 320 mg PO DAILY <Genesis Green PA-C - Last Filed: 09/16/24 18:10> Follow-up/Referrals: Ray Rowley MD [Physician] - <Genesis Green PA-C - Last Filed: 09/16/24 18:10>
[2024-09-16] MEDS: ACETAMINOPHEN 500 MG TABLET 1000 MG PO (18:14)
[2024-09-16 18:16] LABS: Basophils Percent Auto 0.5 % (0.2-1.2); Eosinophils Absolute Auto 0.3 K/mm3 (0-0.3); Eosinophils Percent Auto 3.8 % (0-4.4); Hematocrit 39.8 % (37.0-47.0); Hemoglobin 13.2 g/dL (12.0-15.0); Immature Granulocyte Absolute 0.02 K/mm3 (0.00-0.031); Immature Granulocyte Percent A 0.3 % (0-0.5); Lymphocytes Absolute Auto 1.62 K/mm3 (0.9-3.2); Lymphocytes Percent Auto 22.1 % (18.3-44.2); Mean Corpuscular HGB Conc 33.2 g/dl (32-36); Mean Corpuscular Hemoglobin 30.9 pg (26-34); Mean Corpuscular Volume 93.2 fl (80-100); Mean Platelet Volume 9.6 fl (7.4-10.4); Monocytes Absolute Auto 0.7 K/mm3 (0.1-0.6); Monocytes Percent Auto 8.9 % (2.6-8.5); Neutrophils Absolute Auto 4.7 K/mm3 (1.3-6.7); Neutrophils Percent Auto 64.4 % (45.5-73.1); Platelet Count Result 229 k/mm3 (150-375); Red Blood Count 4.27 M/mm3 (4.2-5.4); Red Cell Distribution Width 12.9 % (11.5-14.5); White Blood Count 7.3 K/mm3 (4.5-10.0)
[2024-09-16 18:33] LABS: Alanine Aminotransferase 16 U/L (6-35); Albumin Level 4.3 g/dL (3.5-5.1); Alkaline Phosphatase 61 U/L (38-126); Anion Gap 3 mmol/L (4-12); Aspartate Amino Transferase 28 U/L (14-36); Bilirubin,Total 0.6 mg/dL (0.2-1.3); Blood Urea Nitrogen 15 mg/dL (7-17); Calcium 9.1 mg/dL (8.4-10.2); Carbon Dioxide 30 mmol/L (22-30); Chloride 105 mmol/L (98-107); Estimated CRCL calculation 82 ml/min; Estimated Glomerular Filt Rate > 60; Glucose 85 mg/dL (65-110); Lipase 78 U/L (23-300); Sodium 138 mmol/L (137-145)
[2024-09-16 18:37] LABS: Add Urine Microscopic? NO; Appearance Urine Clear (Clear); Bilirubin Urine Negative (Negative); Blood Urine Negative (Negative); Color Urine Yellow (Yellow); Glucose Urine UA Negative (Negative); Ketones Urine Negative (Negative); Leukocyte Esterase Ur Negative LEU/UL (Negative); Nitrate Urine Negative (Negative); Protein Urine Negative (Negative); Specific Grav Ur 1.012 (1.001-1.035); Urobilinogen Urine 0.2 mg/dL (<2.0)
--- NOTE | 2024-09-16 20:04 | PC.NURSE ---
this rn contacted lab to add on urine preg test
[2024-09-16 20:34] LABS: Pregnancy On Board Control Positive; Urine Pregnancy Test Negative
[2024-09-16 22:08] VITALS: BP 133/91; PULSE 75; RESP 15; O2SAT 100
[2024-09-16 22:44] VITALS: BP 127/80; PULSE 77; RESP 20; TEMP 36.7; O2SAT 100
== END 2024-09-16 22:45 | disposition home or self-care (01) ==
PROVIDERS: Physician Assistant; Emergency Provider Physician Assistant
DX: R10.32 Left lower quadrant pain (principal); D25.9 Leiomyoma of uterus, unspecified; E03.9 Hypothyroidism, unspecified; E55.9 Vitamin D deficiency, unspecified; K58.9 Irritable bowel syndrome, unspecified; F32.A Depression, unspecified; Z90.79 Acquired absence of other genital organ(s); Z79.899 Other long term (current) drug therapy
CPT/HCPCS: 36415; 74177; 76830; 80053; 81003; 81025; 83690; 85025; 99284; A9270; Q9967

== ENCOUNTER 2025-05-14 18:18 | Emergency (ER) | payer BC, SELFPAY ==
--- NOTE | ~2025-05-14 | XR_ITS ---
EXAMINATION: XR chest 2V Exam Date/Time: 05/14/2025 18:53 CDT HISTORY: CHANGING HEART RATE Comparison: None. RESULT: Lines, tubes, and devices: An electronic device projects over the midline chest.. Lungs and pleura: Clear. Cardiomediastinal silhouette: Normal. Other: No acute osseous or upper abdominal finding. IMPRESSION: No acute cardiopulmonary process. Reviewed, dictated and finalized at location K.
--- OUTSIDE RECORDS SUMMARY | 2025-05-14 18:20 | XMS_ITS | Continuity of Care Document ---
Author Organization [facility] Address [address] [place] [address] Phone Care Team Providers Care Clinical Assistant Professor Name Role Phone Ray Rowley MD Unavailable Unavailable Allergies, Adverse Reactions, Alerts Substance Reaction Status Criticality No Known Allergies Active No Inform ation Medications Medication Instructions Dosage Effective Dates (start - stop) Status Comments Effexor XR 150 mg capsule,extended release take 1 capsule by oral route every day 150 MG - Active [place] Thyroid 15 mg tablet take one po daily - Active [place] Thyroid 60 mg tablet take 1 tablet by oral route every day 60 MG - Active Procedures Procedure Date PREV VISIT, EST, AGE 40-64 OFFICE/OUTPATIENT VISIT, EST OFFICE/OUTPATIENT VISIT, EST OFFICE/OUTPATIENT VISIT, EST OFFICE/OUTPATIENT VISIT, EST PREV VISIT, EST, AGE 40-64 OFFICE/OUTPATIENT VISIT, EST OFFICE/OUTPATIENT VISIT, EST OFFICE/OUTPATIENT VISIT, EST OFFICE/OUTPATIENT VISIT, EST OFFICE/OUTPATIENT VISIT, EST OFFICE/OUTPATIENT VISIT, EST PREV VISIT, NEW, AGE 40-64 OFFICE/OUTPATIENT VISIT, NEW Advance Directives Directive Yes / No Effective Date File Name No Information Encounters Encounter Description Practice Location Reason(s) For Visit Diagnoses Date Provider Providers Copied on Encounter [facility], [address] [place] [address] [place], [id number], [place] tel:[phone] [facility] No Information 4 Amrik Russell [address], [address], [place], [place], [address] , [place]. tel:[phone] PREV VISIT, EST, AGE 40-64 [facility], [address], [place], [place], [address], [place] tel:[phone] [facility] Medicine physical (chief complaint) Encounter for general adult medical exam w abnormal findingsHypothyroid ismGeneralized Anxiety DisorderMixed irritable bowel syndromeAbnormal weight loss 4 Amrik Bell. [address], [address], [place], [place], [address] , [place]. [phone] OFFICE/OUTPA TIENT VISIT, [facility], [address], [place], [place], [address], [place] tel:[phone] [facility] shingle1 (chief complaint) IBS (chief complaint) Mixed irritable bowel syndromeZoster without complications 3 Amrik Bell. [address], [address], [place], [place], [address] , [place]. tel:[phone] OFFICE/OUTPA TIENT VISIT, EST [facility], [address], [place], [place], [address], [place] tel:[phone] [facility] IBS- (chief complaint) anxiety1 (chief complaint) Mixed irritable bowel syndromeGeneralized Anxiety Disorder 2 Amrik Russell [address], [address], [place], [place], [address] , [place]. tel:[phone] OFFICE/OUTPA TIENT VISIT, EST [facility], [address], [place], [place], [address], [place] tel:[phone] [facility] Medicine IBS1 (chief complaint) vasomotor1 (chief complaint) anxitey1 (chief complaint) toenail1 (chief complaint) Mixed irritable bowel syndromeGeneralized Anxiety DisorderIrregular periodOther nail disorders 2 Rowley Ray. [address], [address], [place], [place], [address] , [place]. tel:[phone] PREV VISIT, EST, AGE 40-64 [facility], [address], [place], [place], [address], [place] tel:[phone] [facility] physical (chief complaint) Encounter for general adult medical exam w abnormal findingsGeneralized Anxiety DisorderDisorder of bilirubin metabolism, unspecifiedHypothyr oidismIrregular periodMixed irritable bowel syndrome Jun-0 2 Amrik Ray. [address], [address], [place], [place], [address] , [place]. tel:[phone] OFFICE/OUTPA TIENT VISIT, EST [facility], [address], [place], [place], [address], [place] tel:[phone] [facility] eyelid (chief complaint) anxiety1 (chief complaint) Generalized Anxiety DisorderDisorder of eyelid 2 Amrik Ray. [address], [place], [place], [address] , [place]. tel:[phone] OFFICE/OUTPA TIENT VISIT, EST [facility], [address], [place], [place], [address], [place] tel:[phone] [facility] eye twitching1 (chief complaint) anxiety1 (chief complaint) bili (chief complaint) Generalized Anxiety DisorderDisorder of bilirubin metabolism, unspecifiedDisorder of eyelid 2 Amrik Ray. [address], [place], [place], [address] , [place]. tel:[phone] OFFICE/OUTPA TIENT VISIT, EST [facility], [address], [place], [place], [address], [place] tel:[phone] [facility] sick (chief complaint) bili (chief complaint) Acute laryngitisDisorder of bilirubin metabolism, unspecified Apr- 2 Amrik Ray. [address], [place], [place], [address] , [place]. tel:[phone] OFFICE/OUTPA TIENT VISIT, EST [facility], [address], [place], [place], [address], tel:[phone] [facility] eye1 (chief complaint) bili (chief complaint) iron (chief complaint) Disorder of bilirubin metabolism, unspecifiedHordeolu m externum of right eyelidDisorder of iron metabolism, unspecified 2 Amrik Bell. [address], [place], [place], [address] , [place]. [phone] OFFICE/OUTPA TIENT VISIT, [facility], [address], [place], [place], [address], [place] tel:[phone] [facility] bilirubin1 (chief complaint) iron (chief complaint) hypothyroi dism1 (chief complaint) HypothyroidismDisor kelly of bilirubin metabolism, unspecifiedDisorder of iron metabolism, unspecified Sep-0 1 Amrik Bell. [address], [place], [place], [address] , [place]. [phone] PREV VISIT, NEW, AGE 40-64 [facility], [address], [place], [place], [address], [place] tel:[phone] [facility] physical (chief complaint) Encounter for general adult medical exam w abnormal findingsLumbagoMedi al epicondylitis, left elbowPain in right kneeHypothyroidismE ssential (primary) hypertension 1 Amrik Russell [address], [place], [place], [address] , [place]. [phone] Family History Family Member Type Diagnosis Age At Onset Mother Problem breast CA, 48 Mother Problem grave disease Mother Problem HTN Mother Problem anxiety Mother Problem Crohn disease Payers Payer name Insurance type Covered constitution party ID Authoriza tion(s) No Information Social History Type Description Quantity Date Captured Comments Alcohol Use Details Unknown Caffeine Use Details Unknown Tobacco Use Status No Information Smoking Status No Information Sex Female Chief Complaint And Reason For Visit No Information Plan Of Treatment Date Type Action Status Referral Ordered: COLONOSCOPY AND BIOPSY ordered Referral Ordered: US EXAM, ABDOM, COMPLETE ordered Referral Ordered: US THYROID ordered History Of Present Illness Encounter Date Complaint History Of Prese nt Illness physical Pt needs annual physical Pt has chronic hypothyroidism> pt takes synthroid Pt denies any dysphagia or neck pain Pt sees endo Pt also has anxiety and depression Pt doing well with effexor Pt denies any suicidal or homicidal thought Pt denies any crying spells. Pt has mild IBS which is doing ok Pt had negative colonoscopy. Pt has been intentionally losing weight with diet and exercise. shingle1 Pt c/o acute ons et of itching rash left flank area since yesterday. Pt denies any sick contact Pt denies any fever, chill, illness etc . IBS Additional infor mation: Pt has mild mixed type IBS with constipation and nonbloody diarrhea Pt had completely normal colonoscopy recently Pt denies any abd pain anxiety1 Pt has chronic a nxiety and depression. Pt states that effexor 150 mg daily works better for her mood Pt is happy with her mood currently with effexor Pt denies any side Effexor from effexor. Pt denies any suicidal or homicidal thought. Pt denies any crying spells IBS- pt has IBS sympt oms including non-bloody diarrhea and constipation .Pt has mild bloating Pt denies any abd pain, nausea, vomiting, appetite loss, etc. Pt has been taking more fiber .Pt has aiden for colonoscopy in October IBS1 pt has IBS sympt oms including non-bloody diarrhea and constipation .Pt has mild bloating Pt denies any abd pain, nausea, vomiting, appetite loss, etc .Pt states that GI symptoms slightly better with effexor vasomotor1 Pt has some hot flash, night sweat, irregular period lately and she notices improvement of above symptoms with effexor. Pt denies any cough, fever, abd pain, etc . anxitey1 Pt has chronic a nxiety and depression Pt takes effexor and she notices improvement of her mood with above. Pt still has some mood swings but is improving Pt denies any side effects with effexor. toenail1 Pt notices mild dark color along the inner edge of both big toenail for one week Pt denies any pain or injury Pt denies any similar spots rest of toes. physical Pt needs annual physical. pt has low thyroid. Pt takes armour thyroid. Pt denies any dysphagia or neck pain. 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 Pt denies any abd pain or jaundice Pt has mild anxiety and depression Pt takes lexapro which help slightly but not very much. Pt denies any suicidal or homicidal thought Pt denies any crying spells. Pt also has vasomotor symptoms including hot flush and irregular period. pt sees SOUND RECORDIST and she is on OTC hormone free medication now for hr vasomotor symptoms. Pt also notices mixture of constipation and diarrhea recently .Pt tim any blood in stool. Pt denies any abdominal pain Pt does have some bloating as well. Pt denies any other complaints anxiety1 Pt has chronic a nxiety and depression. Pt started lexapro last month and she notices mild improvement of her ability to handle stress and anxiety. Pt denies any side effects. Pt denies any suicidal or homicidal thought Pt denies any crying spells eyelid Pt states that l eft upper eyelid twitching improved with lexapro Pt denies any eye kieran or vision change bili Pt denies any ab d pain or jaundice. Pt had normal liver ultrasound eye twitching1 Pt c/o persisten t and frequent left upper eyelid twitching for two months. Pt denies any headache ,Pt denies any vision change Pt denies any drainage Pt has jeffrey undergoing more stress lately. Pt denies any eyelid swelling or pain. Pt has been having more stress and less rest recently due to work and home stress. Pt does stare in front of computer daily .Pt denies any facial paresthesia or drooping. Pt denies any eye pain or vision loss or headache or insect bite. anxiety1 Pt has mild anxi ety and depression and her symptoms are getting worse lately due to stress. Both her mom and sisters are on anti depressant. Pt denies any suicidal or homicidal thought Pt denies any crying spells sick Pt c/o acute ons et of sinus congestion, postnasal and nasal drainage for one week with green color. Pt has mild sore throat and hoarseness. Pt c/o mild cough with green phlegm as well. Pt denies any fever, chest pain or sob. Pt has been taking OTC anti-histamine and cold medicine without improvement. Pt denies any sick contact. Pt denies any sick contact bili Pt has mildly hi gh bili. Pt denies any abd pain or jaundice. Pt has not done ultrasound yet eye1 Pt c/o mild irri tation and thick discharge from right eye in the morning for the past two days. . Pt states that she only notices the discharge in the morning only briefly Pt denies any eye pain or vision change Pt denies any sick contact Pt denies any sinus congestion, headache or fever. Pt also notices a small right upper eyelid sty around medial area for two weeks. Pt notices mild irritation around the sty. Pt tried warm compress without improvement bili Pt has very mild elevation of bilirubin Pt denies any abd pain or jaundice. iron Pt has mild high iron without polycythemia. Pt had repeat lab and her iron level is ok now hypothyroidism1 Pt has hypothyro idism. Pt denies any dysphagia or neck pain. TSI and TPO and TSh ok .Pt is on armour. Thyroid ultrasound is ok. bilirubin1 Pt had lab done through work and she has hgh total bili and mildly high direct bili and indirect bili was not done. Pt denies any abd pain or jaundice Pt rarely drinks alcohol iron Pt has mildly hi gh iron and ferritin not done and her hemoglobin is ok. She denies any family history of iron disease or hemachromatosis. Her LFT is ok physical Pt needs annual physical. Pt has hypothyroidism. Pt sees endo and she takes 75 mg armour thyroid Pt denies any dysphagia or neck pain. Pt c/o medial left elbow pain for 3-4 months Pt denies any injury Pt denies any radiation to left forearm and hand Pt denies any left hand numbness or tingling or weakness. Pt does a lot of lifting while at work and she developed the medial left elbow pain recently Pt did see chiropractor and she received plasm injection to left elbow area. Pt states that she still feels some pain occasionally. Pt has chronic low back pain Pt denies any sciatica or leg numbness or tingling Pt denies saddle area paresthesia Pt denies any injury. Pt never done x ray. Pt has been seeing chiropractor and getting adjustment which does help. Pt also c/o medical right knee pain when she bend her right knee for several months. Pt has history of right knee surgery back in high school but she is not sure what was the nature of the surgery PT denies any right knee swelling Pt denies any redness or warmth. Pt denies any injury. Pt states that back pain and elbow pain improved after chiropractice adjustment but she has pain again after the adjustment Pt denies any other complaints Instructions Date Instruction Additional Infor slava No Information Assessments Type Assessment Date No Information
--- OUTSIDE RECORDS SUMMARY | 2025-05-14 18:20 | XMS_ITS | Referral Summary ---
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 Gender Identity Not on file Sexual Orientation Not on file Plan of Treatment Not on file Procedures Procedure Name Priority Date/Time Associated Diagnosis Comments SCREENING MAMMOGRAM BILATERAL W JOSE CRUZ Schedule Routine, Read Routine (OP Routine) 05/24/2024 8:59 AM CDT Screening mammogram, encounter for from Last 3 Months or Most Recently Relevant to Health Maintenance Results * Screening Mammogram Bilateral W Jose Cruz (05/24/2024 8:59 AM CDT) Anatomical Region Laterality Modality Breast Bilateral Mammography Narrative 05/27/2024 7:40 PM CDT Mammogram Technique: Bilateral Digital Breast Tomosynthesis, Bilateral C-view 2D Screening mammogram. Views obtained: bilateral craniocaudal and bilateral mediolateral oblique. Computer Aided Detection was performed. Mammogram Findings: The present examination has been compared to prior imaging studies performed at [facility] on 09/19/2020, 12/18/2021 and 02/18/2023. The breasts are extremely dense, which lowers the sensitivity of mammography. There is asymmetry in the upper mediolateral oblique view of the right breast. There is no suspicious abnormality in the left breast. Impression: Asymmetry in the right breast requires additional evaluation. Diagnostic mammogram and possible ultrasound of the right breast are recommended at this time. OVERALL FINAL ASSESSMENT: BI-RADS CATEGORY 0: Incomplete: Need additional imaging evaluation. Procedure Note Ana Solorzano MD - 05/27/2024 Mammogram Technique: Bilateral Digital Breast Tomosynthesis, Bilateral C-view 2D Screening mammogram. Views obtained: bilateral craniocaudal and bilateral mediolateral oblique. Computer Aided Detection was performed. Mammogram Findings: The present examination has been compared to prior imaging studies performed at [facility] on 09/19/2020, 12/18/2021 and 02/18/2023. The breasts are extremely dense, which lowers the sensitivity of mammography. There is asymmetry in the upper mediolateral oblique view of the right breast. There is no suspicious abnormality in the left breast. Impression: Asymmetry in the right breast requires additional evaluation. Diagnostic mammogram and possible ultrasound of the right breast are recommended at this time. OVERALL FINAL ASSESSMENT: BI-RADS CATEGORY 0: Incomplete: Need additional imaging evaluation. us Self Screening Mammogram IMG MAMMO PROCEDURES Fi nal Result from Last 3 Months or Most Recently Relevant to Health Maintenance Insurance [facility]ESS [place] [address] [place] [place] [address] [place] [address] [employer] Care Teams Pipe Insulator Relationship Specialty Start Date End Date Ray Rowley MD [address] [place] [address] PCP - General Family Medicine 10/28/21
--- OUTSIDE RECORDS SUMMARY | 2025-05-14 18:20 | XMS_ITS | Clinical Summary ---
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 Gender Identity Not on file Sexual Orientation Not on file Obstetrics History Plan of Treatment Health Maintenance Due Date Last Done Comments Cervical Cancer Screening 1979 Colon Cancer Screening-Colonoscopy 1979 Depression Screening 1979 Hepatitis C Screening 1979 DTaP/Tdap/Td Vaccine (1 - Tdap) 1990 Hepatitis B Screening 1997 Regular Well Visit/Exam 18-64 1997 Breast Cancer Screening-Mammogram 05/24/2025 05/24/2024, 02/18/2023, 12/18/2021, Additional history exists Influenza Vaccine (Season Ended) 2025 07/14/2020, 10/29/2019, 09/13/2016 HPV Vaccines Aged Out No longer eligi ble based on patient's age to complete this topic Pneumococcal vaccine <65 Aged Out No longer eligible based on patient's age to complete this topic Procedures Procedure Name Priority Date/Time Associated Diagnosis [...] compared to prior imaging studies performed at [facility] on 09/19/2020, 12/18/2021 and 02/18/2023. The [...] compared to prior imaging studies performed at [facility] on 09/19/2020, 12/18/2021 and 02/18/2023. The [...] Most Recently Relevant to Health Maintenance Insurance [employer] [facility] [place] [id number] [employer] ACCESS CHOICE Care Teams Deburrer Relationship Specialty Start Date End Date Ray Rowley MD [address] [place] [address] [phone] [phone] PCP - General Family Medicine 10/28/21
--- OUTSIDE RECORDS SUMMARY | 2025-05-14 18:20 | XMS_ITS | Clinical Summary ---
Author Organization [facility] [employer] Address [address] [place] [address] Care Team Providers Care Motion Picture Projectionist Apprentice Name Role Phone Genesis Spencer PA-C Primary Care Provider Source Comments [facility],non-owned Affiliates and Associated Physician Practices is amultiple site organization consisting of ambulatory clinics and hospital sitesin [place], [place] and [place]. This disclosure is being madepursuant to the Care Everywhere program and may not contain all information available regarding this patient. Last updated 18.[facility] Allergies No known active allergies Medications * Be aware that medications may not be up to date on this document. Alwaysverify current medications with the patient. ARMOUR THYROID PO Active multivitamin daily tablet Take 1 (one) tablet by mouth daily with food Active Misc Natural Products (Relizen) TABS Activ e vitamin D3 (Cholecalcifero l) 25 MCG (1000 UNITS) tablet Take 1 (one) tablet by mouth once daily Active Biotin w/ Vitamins C & E (HAIR SKIN & NAILS GUMMIES PO) Active venlafaxine XR 24hr (Effexor XR) 150 MG capsuleIndicati ons:Generalized anxiety disorder Take 1 (one) capsule by mouth once daily 90 capsule 3 07/23/2024 Active venlafaxine XR 24hr (Effexor XR) 37.5 MG capsuleIndicati ons:Generalized anxiety disorder,Grief Take 1 (one) capsule by mouth once daily 90 capsule 3 01/22/2025 Active Active Problems Problem Noted Date Diagnosed Date Hypothyroid 07/24/2024 Encounters Date Type Department Care Team Description 04/28/2025 Results Follow-Up [facility] - Family Medicine [address] [place] [address] Brenda Nolasco MD 04/25/2025 2:40 PM CDT Office Visit [facility] - [facility] Medicine [address] [place] [address] Brenda Nolasco MD Heart palpitations (Primary Dx); Acquired hypothyroidism; Syncope, unspecified syncope type 04/25/2025 Travel from Last 3 Months Immunizations Immunization Administration Dates Next Due [employer] primary monoval ent 12+ yr 0.3mL Purple cap 02/07/2021,01/17/2021 INFLUENZA VACCINE, CELL CULT URE, QUADR. (FLUCELVAX QUADRIVALENT; 6MO+) (CCIIV4) 10/29/2019 INFLUENZA VACCINE, QUADR. (F LUZONE; FLULAVAL; FLUARIX; AFLURIA QUADRIVALENT; 6MO+), 0.5 ML (IIV4) 07/14/2020,09/13/2016 INFLUENZA VACCINE, TRIV. (FL UZONE; FLULAVAL; FLUARIX; AFLURIA TRIVALENT; 6MO+), 0.5 ML (IIV3) 07/23/2024 TDAP (7yrs+) 07/23/2024 Family History Medical History Relation Name Comments Alzheimer's Disease Father High Cholesterol Father Diabetes - Type 2 Maternal Grandfather CVA Maternal Grandmother Cancer - Breast Mother Cancer - Stomach Mother metastasize d to brain, lungs, and liver Seizures Mother Diabetes - Type 1 Paternal Aunt Dementia Paternal Grandfather Alzheimer's Disease Paternal Grandmother Asthma Sister 1 Relation Name Status Comments Father Alive Maternal Grandfather Maternal Grandmother Mother Paternal Aunt Paternal Grandfather Paternal Grandmother Sister 1 Alive Sister 2 Alive Social History Tobacco Use Types Packs/Day Years Used Date Smoking Tobacco: Never Smokeless Tobacco: Never Tobacco Cessation:Counseling Given: Not Answered PHQ-2 Answer Date Recorded Patient Health Questionnaire-2 Score 3 04/24/2025 Comments No Sex and Gender Information Value Date Recorded Sex Assigned at Female 07/16/2023 12:27 PM CDT Legal Sex Female 9:55 AM CDT Gender Identity Female 07/16/2023 12:27 PM CDT Sexual Orientation Straight 07/16/2023 12 :27 PM CDT Last Filed Vital Signs Vital Sign Reading Time Taken Comments Blood Pressure 123/85 04/25/2025 2:35 PM CDT Pulse 87 04/25/2025 2:35 PM CDT Temperature 36.6 C (97.9 F) 01/22/2025 9:14 AM CDT Respiratory Rate 16 03/29/2021 11:25 AM CDT Oxygen Saturation 100% 04/25/2025 2:35 PM CDT Inhaled Oxygen Concentration - - Weight 82.1 kg (181 lb) 04/25/2025 2:35 PM CDT Height 167.6 cm (5' 6) 04/25/2025 2:35 PM CDT Body Mass Index 29.21 04/25/2025 2:35 PM CDT Plan of Treatment Health Maintenance Due Date Last Done Comments COLOGUARD (AGES 45-75) - COLON CA SCREENING [address] COLONOGRAPHY - COLON CA SCREENING 1979 FIT - COLON CA SCREENING 1979 FLEX SIG - COLON CA SCREENING 1979 HIV SCREENING 1994 HEPATITIS C SCREENING 03/29/1997 HEPATITIS B VACCINE (1 of 3 - 19+ 3-dose series) 1998 COVID-19 VACCINE ( season) 2024 02/07/2021, 01/17/2021 INFLUENZA VACCINE (#1) 2025 4, 07/14/2020, 10/29/2019, Additional history exists MAMMOGRAM 07/04/2026 07/04/2024, 0703/2024, 05/24/2024, Additional history exists PAP SMEAR 11/16/2026 11/16/2023 (Done Outside Per Patient) SCREENING FOR DIABETES 05/20/2027 (Done Outside Per Report) ZOSTER VACCINE (1 of 2) 2029 LIPID TESTING 05/20/2029 05/20/2024 (Done Outside Per Report) COLONOSCOPY - COLON CA SCREENING 10/30/2032 10/30/2022 (Done Outside Per Patient) Colorectal Cancer Screening 10/30/2032 DTAP/TDAP/TD VACCINES (2 - Td or Tdap) 07/23/2034 07/23/2024 DEPRESSION SCREENING Completed 12/26/2024, 07/23/20 HIB VACCINE Aged Out No longer eligi ble based on patient's age to complete this topic HPV VACCINE Aged Out No longer eligi ble based on patient's age to complete this topic MENINGOCOCCAL (Group B) VACCINE SHARED DECISION-MAKING Aged Out No longer eligible based on patient's age to complete this topic MENINGOCOCCAL GROUPS A/C/Y/W VACCINE Aged Out No longer eligible based on patient's age to complete this topic PNEUMOCOCCAL VACCINE Aged Out No long er eligible based on patient's age to complete this topic Procedures Procedure Name Priority Date/Time Associated Diagnosis Comments THYROID AB PANEL (TPO AB+THYROGLOB AB) Routine 04/25/2025 3:52 PM CDT Heart palpitations Acquired hypothyroidism T4 FREE Routine 04/25/2025 3:52 PM CDT Heart palpitations Acquired hypothyroidism TSH Routine 04/25/2025 3:52 PM CDT Heart palpitations Acquired hypothyroidism EKG 12-LEAD Routine 04/25/2025 3:24 PM CDT Heart palpitations from Last 3 Months Results * THYROID AB PANEL (TPO AB+THYROGLOB AB) (04/25/2025 3:52 PM CDT) Thyroid Peroxidase TPO Antibody 20 0 - 34 IU/mL [facility] INSURANCE BILL Thyroglobulin Antibody <1.0 0.0 - 0.9 IU/mL [facility] INSURANCE BILL Comment: Thyroglobulin Antibody measured by [facility] [place] [employer] It should be noted that the presence of thyroglobulin antibodies may not be pathogenic nor diagnostic, especially at very low levels. The assay waiter/waitress formal has found that four percent of individuals without evidence of thyroid disease or autoimmunity will have positive TgAb levels up to 4 IU/mL. Blood BLOOD SPECIMEN / Unknown 04/25/2025 3:52 PM CDT 04/25/2025 Narrative [facility] INSURANCE BILL - 04/28/2025 3:09 PM CDT Performed at: [address] [place] [address] [id number] Batch And Furnace Operator: Shady Portillo PhD, Phone: [phone] us Brenda Nolasco MD LAB - CHEMISTRY ORDERABLES Fin al Result Performing Organization Address [facility] Co de Phone Number [facility] INSURANCE BILL [address] [place] [address] * TSH (04/25/2025 3:52 PM CDT) TSH 2.950 0.450 - 4.500 uIU/mL [facility] INSURANCE BILL Blood BLOOD SPECIMEN / Unknown 04/25/2025 3:52 PM CDT 04/25/2025 Narrative [facility] INSURANCE BILL - 04/26/2025 7:37 AM CDT Performed at: [address] [place] [address] [id number] Batch And Furnace Operator: Shady Portillo PhD, Phone: [phone] Brenda Nolasco MD LAB - CHEMISTRY ORDERABLES Fin al Result Performing Organization Address [facility] de Phone Number [facility] INSURANCE BILL [address] [place] [address] * (ABNORMAL) T4 FREE (04/25/2025 3:52 PM CDT) T4 Free 0.54(L) 0.82 - 1.77 ng/dL [facility] INSURANCE BILL Blood BLOOD SPECIMEN / Unknown 04/25/2025 3:52 PM CDT 04/25/2025 Narrative [facility] INSURANCE BILL - 04/26/2025 7:37 AM CDT Performed at: [address] [place] [address] [id number] Batch And Furnace Operator: Shady Portillo PhD, Phone: [phone] Brenda Nolasco MD LAB - CHEMISTRY ORDERABLES Fin al Result [facility] INSURANCE BILL [address] [place] [address] * EKG in Clinic (04/25/2025 3:24 PM CDT) Ventricular Rate 80 BPM [facility] Atrial Rate 80 BPM [facility] P-R Interval 138 ms [facility] QRS Duration ms 90 ms [facility] Q-T Interval ms 368 ms [facility] QTC Calculation (Bezet) 424 ms [facility] Calculated P [place] 66 degrees [facility] Calculated R [place] 70 degrees [facility] Calculated T [place] 55 degrees [facility] Interpretation EKG NORMAL SINUS RHYTHM WITH SINUS ARRHYTHMIA NORMAL ECG NO PREVIOUS ECGS AVAILABLE Confirmed by BRENDA NOLASCO MD ([id number]) on 04/25/2025 3:41:52 PM [facility] 04/25/2025 3:2 4 PM CDT 04/25/2025 3:41 PM CDT us Brenda Nolasco MD ECG ORDERABLES Edited Result - Final [facility] from Last 3 Months Insurance ANTHEM * Guarantor: MADAI RASMUSSEN Account Type Relation to Patient Date of Phone Billing Address Personal/Family Spouse Care Teams Motion Picture Projectionist Apprentice Relationship Specialty Start Date End Date Genesis Spencer PA-C PCP - General Physician Strategic Intelligence Officer Medical 07/23/24
--- NOTE | 2025-05-14 18:22 | ECG_ITS ---
Test Date: 2025-05-14 18:29:55 Measurements Intervals [place] Rate: 86 P: 45 IN: 133 QRS: 60 QRSD: 86 T: 41 QT: 345 QTc: 413 Interpretive Statements SINUS RHYTHM No previous ECG available for comparison Electronically Signed On 05-14-2025 23:31:28 CDT by Spike Wilson D.O
[2025-05-14 18:26] VITALS: BP 151/89; PULSE 84; PULSE 92; RESP 18; TEMP 36.4; O2SAT 100
[2025-05-14 18:45] LABS: Hematocrit 40.5 % (37.0-47.0); Hemoglobin 13.2 g/dL (12.0-15.0); Immature Granulocyte Percent A 0.3 % (0-0.5); Lymphocytes Absolute Auto 1.26 K/mm3 (0.9-3.2); Mean Corpuscular HGB Conc 32.6 g/dl (32-36); Mean Corpuscular Hemoglobin 30.4 pg (26-34); Mean Corpuscular Volume 93.3 fl (80-100); Nucleated Red Blood Cells Absolute Auto 0.000 K/mm3 (0.0-0.012); Nucleated Red Blood Cells Perc 0.0 % (0.0-0.2); Platelet Count Result 228 k/mm3 (150-375); Red Blood Count 4.34 M/mm3 (4.2-5.4); White Blood Count 6.7 K/mm3 (4.5-10.0)
[2025-05-14 19:00] LABS: Alanine Aminotransferase 18 U/L (6-35); Albumin Level 4.4 g/dL (3.5-5.1); Alkaline Phosphatase 64 U/L (38-126); Anion Gap 7 mmol/L (4-12); Aspartate Amino Transferase 29 U/L (14-36); Bilirubin,Total 0.5 mg/dL (0.2-1.3); Blood Urea Nitrogen 15 mg/dL (7-17); Calcium 9.2 mg/dL (8.4-10.2); Carbon Dioxide 23 mmol/L (22-30); Chloride 104 mmol/L (98-107); Estimated CRCL calculation 94 ml/min; Estimated Glomerular Filt Rate > 60; Glucose 97 mg/dL (65-110); Lipase 93 U/L (23-300); Potassium 4.3 mmol/L (3.4-5.0); Sodium 134 mmol/L (137-145); Total Protein 7.4 g/dL (6.3-8.2)
[2025-05-14 19:14] LABS: Troponin I < 0.012 ng/mL (0.000-0.034)
[2025-05-14 19:37] LABS: INR 1.0; Prothrombin Time 13.7 Seconds (11.1-14.7)
[2025-05-14 19:38] LABS: Partial Thromboplastin Time 26.6 Seconds (22.3-36.8)
--- NOTE | 2025-05-14 22:04 | PC.NURSE ---
Pt presents to ED c/o palpitations, denies CP. Pt saw her diaphragm builder last week has her ekg monitor for 1 week now. Per pt her HR went up to max 108 last night. Pt denies SOB, N/V
[2025-05-14] MEDS: ASPIRIN 81 MG CHEWABLE TABLET 324 MG PO (22:37)
--- NOTE | 2025-05-14 22:41 | ECG_ITS ---
Test Date: 2025-05-14 22:45:27 Measurements Intervals [place] Rate: 79 P: 60 SC: 145 QRS: 62 QRSD: 93 T: 47 QT: 372 QTc: 428 Interpretive Statements SINUS RHYTHM WITH SINUS ARRHYTHMIA Compared to ECG 05/14/2025 18:29:55 No significant changes Electronically Signed On 05-14-2025 23:34:48 CDT by Spike Wilson D.O
[2025-05-14 22:43] LABS: Troponin I < 0.012 ng/mL (0.000-0.034)
--- NOTE | 2025-05-14 22:50 | ED_ITS ---
HPI - Arrhythmia/Palpitations General Chief Complaint: Arrhythmia/Palpitations Stated Complaint: HEART RATE ISSUES Time Seen by Provider: 05/14/25 22:08 History of Present Illness HPI narrative: 45-year-old female with a past medical history including hypothyroidism on [place] Thyroid. Patient presents to the emergency department today with palpitations and feeling fatigued. She states that the symptoms have been going on for several weeks to months and she is currently wearing a Holter monitor for week 1 of 2 their primary care provider prescribed for palpitations. She was told that she may need a sleep study for her symptomatology but she felt more fatigued and complaint of intermittent palpitations last night so she came to the emergency department. No ongoing chest pain or chest pressure, no difficulty breathing at rest. No nausea, vomiting, headache or vision changes. No neurological deficits complaints. No traumatic injuries. With otherwise in her normal state of health. States that her Holter monitor has been worn and she has had several events over last week and she has alerted the device but has not received any results. No history of AFib irregular heartbeats. No history of heart failure coronary disease to her knowledge. No history of DVT or PE, no recent surgeries, no leg asymmetry or calf asymmetry, no hormone replacement therapy otherwise such as control. Related Data Home Medications ?Medication ?Instructions ?Recorded ?Confirmed ?Last Taken ?Type cholecalciferol (vitamin D3) 25 25 mcg PO DAILY 06/08/20 05/01/25 06/20/23 History mcg (1,000 unit) capsule multivitamin 1 tablet PO DAILY 08/22/22 05/01/25 06/20/23 History pollens extract 160 mg tablet 320 mg PO DAILY 08/22/22 05/01/25 06/20/23 History (Relizen) venlafaxine 150 mg 150 mg PO HS 08/22/22 05/01/25 06/22/23 History capsule,extended release 24 hr venlafaxine 37.5 mg 37.5 mg PO DAILY 02/04/25 05/01/25 Unknown History capsule,extended release 24 hr Allergies Allergy/AdvReac Type Severity Reaction Status Date / Time No Known Allergies Allergy Mild Verified 05/14/25 18:21 Review of Systems 2 Review of Systems: As reviewed above in HPI [facility] Past Medical History Medical History Colon cancer screening IBS (irritable bowel syndrome) Depression Hypothyroidism (acquired) Vitamin D deficiency disease Left inguinal hernia History of blood transfusion Cervical strain, acute Contusion of shoulder, left Surgical History Surgical History History of hysteroscopy History of D&C History of bilateral salpingectomy History of inguinal hernia repair 06/25/20 LIH repair with 6c, parietex hernia mesh system Previous section x 2 History of orthopedic surgery 20 years ago Family History Family History Grandparent Hypertension Malignant neoplasm of prostate Diabetes mellitus Cerebrovascular accident Mother Hypertension Breast cancer Crohn disease Stomach cancer Sibling Depression Social History Social History Smoking status: Never smoker Second hand tobacco smoke exposure: No Alcohol intake: never Substance use: never Substance use type: does not use Lack of Transportation: No Lack of Food: Never True Current Housing: I Have Housing Concerned About Future Housing: No Difficulty Paying Gas/Electric Bills: No Difficulty Paying for Meds: No Currently Unemployed: No Education: Bachelor's Degree Difficulty w/ Childcare or Family Care: No Living arrangements: with family 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 Mucous membranes moist. NECK: Supple. CHEST: [Clear to auscultation. No respiratory distress.] HEART: [Regular rate and rhythm]. No murmur heard. [Normal peripheral pulses.] ABDOMEN: [Soft, nondistended], [nontender], [No rigidity or guarding] EXTREMITIES: Normal range of motion. [No edema.] SKIN: Warm, dry, no rash. NEURO: [No focal deficits]. Alert and oriented [x3.] PSYCH: [Normal mood and affect.] Course Vital Signs Vital signs: Vital Signs Temperature 36.4 C L 05/14/25 18:26 Pulse Rate 92 05/14/25 18:26 Respiratory Rate 18 05/14/25 18:26 Blood Pressure 151/89 H 05/14/25 18:26 Pulse Oximetry 100 05/14/25 18:26 Temperature 36.4 C L 05/14/25 18:26 Pulse Rate 87 05/15/25 00:54 Respiratory Rate 16 05/15/25 00:54 Blood Pressure 116/82 05/15/25 00:54 Pulse Oximetry 99 05/15/25 00:54 MDM - Arrhythmia/Palpitations MDM Narrative Medical decision making narrative: 45-year-old female with a past medical history including hypothyroidism on [place] Thyroid. Patient presents to the emergency department today with palpitations and feeling fatigued. She states that the symptoms have been going on for several weeks to months and she is currently wearing a Holter monitor for week 1 of 2 their primary care provider prescribed for palpitations. She was told that she may need a sleep study for her symptomatology but she felt more fatigued and complaint of intermittent palpitations last night so she came to the emergency department. No ongoing chest pain or chest pressure, no difficulty breathing at rest. No nausea, vomiting, headache or vision changes. No neurological deficits complaints. No traumatic injuries. With otherwise in her normal state of health. States that her Holter monitor has been worn and she has had several events over last week and she has alerted the device but has not received any results. No history of AFib irregular heartbeats. No history of heart failure coronary disease to her knowledge. No history of DVT or PE, no recent surgeries, no leg asymmetry or calf asymmetry, no hormone replacement therapy otherwise such as control. Patient is well appearing not any acute distress, no tachycardia, hypoxia, fever or tachypnea. Blood pressure mildly elevated 151/89 but stable. She has an unremarkable physical examination otherwise very well-appearing on examination. Suspicion presently is for palpitations that could be multifactorial and related to potential sleep issues, electrolyte imbalances, less likely infectious pathology such as pneumonia and less likely acute coronary syndrome or thromboembolic disease such as DVT/PE. She has seen her injection molding supervisor and primary care provider multiple times for her thyroid and has had no issues recently and is clinically euthyroid based on their notes this last month. CBC, CMP, troponin, D-dimer, delta troponin, EKG and chest x-ray obtained. Discussed with the patient need for close outpatient follow-up assuming unremarkable workup and safe discharge home. Patient agreeable to plan at this time. Workup shows no leukocytosis or anemia. Normal platelet count. Negative D- dimer, negative troponin, negative delta troponin, normal electrolytes, normal kidney function, normal platelets, normal LFTs. Chest x-ray shows no acute cardiopulmonary process. EKGs are nonischemic in nature. Patient is safe and stable for discharge home at this time with regular primary care provider follow-up and return precautions. Medical Records Attestation: I reviewed the patient's medical records. Lab Data Attestation: I reviewed the patient's lab results. 05/14/25 18:35 05/14/25 18:35 Labs: Lab Results 05/14/25 05/14/25 Range/Units 18:35 22:13 WBC 6.7 (4.5-10.0) K/mm3 RBC 4.34 (4.2-5.4) M/mm3 Hgb 13.2 (12.0-15.0) g/dL Hct 40.5 (37.0-47.0) % MCV 93.3 (80-100) fl MCH 30.4 (26-34) pg MCHC 32.6 (32-36) g/dl RDW 13.0 (11.5-14.5) % Plt Count 228 (150-375) k/mm3 MPV 9.8 (7.4-10.4) fl Immature Gran % (Auto) 0.3 (0-0.5) % Neut % (Auto) 68.8 (45.5-73.1) % Lymph % (Auto) 18.7 (18.3-44.2) % [place] % (Auto) 7.6 (2.6-8.5) % Eos % (Auto) 4.0 (0-4.4) % Baso % (Auto) 0.6 (0.2-1.2) % Lymph # (Auto) 1.26 (0.9-3.2) K/mm3 [place] # (Auto) 0.5 (0.1-0.6) K/mm3 Eos # (Auto) 0.3 (0-0.3) K/mm3 Baso # (Auto) 0.0 (0.0-0.1) K/mm3 Abs Immat Gran (auto) 0.02 (0.00-0.031) K/mm3 Absolute Neuts (auto) 4.6 (1.3-6.7) K/mm3 Absolute Nucleated RBC 0.000 (0.0-0.012) K/mm3 Nucleated RBC % 0.0 (0.0-0.2) % PT 13.7 (11.1-14.7) Seconds INR 1.0 APTT 26.6 (22.3-36.8) Seconds D-Dimer 0.42 (<0.48) ug/mL Sodium 134 L (137-145) mmol/L Potassium 4.3 (3.4-5.0) mmol/L Chloride 104 (98-107) mmol/L Carbon Dioxide 23 (22-30) mmol/L Anion Gap 7 (4-12) mmol/L BUN 15 (7-17) mg/dL Creatinine 0.70 (0.7-1.0) mg/dL Estim Creat Clear Calc 94 ml/min Estimated GFR > 60 (59 - ) Glucose 97 (65-110) mg/dL Calcium 9.2 (8.4-10.2) mg/dL Total Bilirubin 0.5 (0.2-1.3) mg/dL AST 29 (14-36) U/L ALT 18 (6-35) U/L Alkaline Phosphatase 64 (38-126) U/L Troponin I < 0.012 < 0.012 (0.000-0.034) ng/mL Total Protein 7.4 (6.3-8.2) g/dL Albumin 4.4 (3.5-5.1) g/dL Lipase 93 (23-300) U/L Imaging Data Attestation: I personally reviewed and interpreted this imaging study as follows: My impression: Impressions Chest X-Ray 05/14/25 19:07 IMPRESSION: No acute cardiopulmonary process. Radiologist's impression: Impressions Chest X-Ray 05/14/25 19:07 IMPRESSION: No acute cardiopulmonary process. Discharge Plan Discharge Clinical Impression: Heart palpitations Patient Disposition: Home Condition: Stable Instructions: Antibiotic Form Additional Instructions: Your cardiac workup and laboratory studies are all very reassuring here today without any focal findings or acute urgent or emergent concerns. Cardiac enzymes are undetectable x2, blood clot test is negative, no signs of an infection, no anemia. Unclear the exact cause of your symptoms but you are safe and stable for discharge at this time with regular primary care provider follow- up. Continue wearing her Holter monitor and follow-up with your doctor next week to get the results and in the interim if you have any new or worsening/emergent concerns return to the ER at that time. Patient Language: Burmese Prescriptions: No Action cholecalciferol (vitamin D3) 25 mcg (1,000 unit) capsule 25 mcg PO DAILY multivitamin Tablet 1 tablet PO DAILY venlafaxine 150 mg capsule,extended release 24hr 150 mg PO HS Relizen 160 mg tablet 320 mg PO DAILY venlafaxine 37.5 mg capsule,extended release 24hr 37.5 mg PO DAILY thyroid (pork) [[place] Thyroid] 60 mg tablet 60 mg PO DAILY Qty: 90 2RF thyroid (pork) [[place] Thyroid] 15 mg tablet 15 mg PO DAILY Qty: 90 2RF Follow-up/Referrals: PHYSICIAN NOT ON STAFF,NONSTAFF [Primary Care Provider] - Time of Disposition: 00:45
--- OUTSIDE RECORDS SUMMARY | 2025-05-14 22:57 | XMS_ITS | Referral Summary ---
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 Address: [facility] [id number] [place] [address] [place] [address] [place] [address] [place] [address] [employer]M ACCESS CHOICE Care Teams Juvenile Corrections Officer Relationship Specialty Start Date End Date Ray Rowley MD [address] [place] [address] PCP - General Family Medicine 10/28/21
--- OUTSIDE RECORDS SUMMARY | 2025-05-14 22:57 | XMS_ITS | Clinical Summary ---
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 The breasts [...] compared to prior imaging studies performed at [facility] on 09/19/2020, 12/18/2021 and 02/18/2023. The breasts [...] Maintenance Insurance [facility]M [facility]ESS [facility] [place] [phone] ANTHEM ACCESS CHOICE Care Teams Shirt Creaser Relationship Specialty Start Date End Date Ray Rowley MD [address] [place] [address] [place] [address] PCP - General Family Medicine 10/28/21
--- OUTSIDE RECORDS SUMMARY | 2025-05-14 22:57 | XMS_ITS | Clinical Summary ---
Author Organization [facility] Address [address] [place] [address] Care Team Providers Care Rough Patcher Name Role Phone Genesis Spencer PA-C Primary Care Provider Source Comments [facility],non-owned Affiliates and Associated Physician Practices is amultiple site organization consisting of ambulatory clinics and hospital sitesin [place], [place], [place] and [place]. This disclosure is being madepursuant to the Care Everywhere program and may not contain all information available regarding this patient. Last updated 18.[facility] Allergies No known active allergies Medications * [...] Department Care Team Description 04/28/2025 Results Follow-Up [facility] - Family Medicine [address] [place] [address] Brenda Nolasco MD 04/25/2025 2:40 PM CDT Office Visit [facility] - Family Medicine [address] [place] [address] Brenda Nolasco MD Heart palpitations (Primary Dx); Acquired hypothyroidism; Syncope, unspecified syncope type 04/25/2025 Travel from Last 3 Months Immunizations Immunization Administration Dates Next Due cafegive primary monoval ent 12+ yr 0.3mL Purple [...] BILL Comment: Thyroglobulin Antibody measured by [employer] Methodology It should be noted that the presence of thyroglobulin antibodies may not be pathogenic nor diagnostic, especially at very low levels. The assay renal dialysis technician has found that four percent of individuals without evidence of thyroid disease or autoimmunity will have positive TgAb levels up to 4 IU/mL. Blood BLOOD SPECIMEN / Unknown 04/25/2025 3:52 PM CDT 04/25/2025 Narrative [facility] INSURANCE BILL - 04/28/2025 3:09 PM CDT Performed at: [address] [place] [address] [id number] Comic Book Artist: Shady Portillo PhD, Phone: [phone] us Brenda Nolasco MD LAB - CHEMISTRY ORDERABLES Fin al Result Performing Organization Address City/[facility] Co de Phone Number [facility] INSURANCE BILL [address] [place] [address] * TSH (04/25/2025 3:52 PM CDT) TSH 2.950 0.450 - 4.500 uIU/mL [facility] INSURANCE BILL Blood BLOOD SPECIMEN / Unknown 04/25/2025 3:52 PM CDT 04/25/2025 Narrative [facility] INSURANCE BILL - 04/26/2025 7:37 AM CDT Performed at: [address] [place] [address] [id number] Comic Book Artist: Shady Portillo PhD, Phone: [phone] Brenda Nolasco MD LAB - CHEMISTRY ORDERABLES Fin al Result Performing Organization Address [facility] de Phone Number [facility] INSURANCE BILL [address] [place] [address] * (ABNORMAL) T4 FREE (04/25/2025 3:52 PM CDT) T4 Free 0.54(L) 0.82 - 1.77 ng/dL [facility] INSURANCE BILL Blood BLOOD SPECIMEN / Unknown 04/25/2025 3:52 PM CDT 04/25/2025 Narrative [facility] INSURANCE BILL - 04/26/2025 7:37 AM CDT Performed at: [address] [place] [address] [id number] Comic Book Artist: Shady Portillo PhD, Phone: [phone] Brenda Nolasco MD LAB - CHEMISTRY ORDERABLES Fin al Result [facility] INSURANCE BILL [address] [place] [address] * EKG in Clinic (04/25/2025 3:24 PM CDT) Ventricular Rate 80 BPM [facility] Atrial Rate 80 BPM [facility] P-R Interval 138 ms [facility] QRS Duration ms 90 ms [facility] Q-T Interval ms 368 ms [facility] QTC Calculation (Bezet) 424 ms [facility] Calculated P [place] 66 degrees [facility] Calculated R [place] 70 degrees [facility] Calculated T [place] 55 degrees [facility] Interpretation EKG NORMAL SINUS RHYTHM WITH SINUS ARRHYTHMIA NORMAL ECG NO PREVIOUS ECGS AVAILABLE Confirmed by BRENDA NOLASCO MD ([id number]) on 04/25/2025 3:41:52 PM [facility] 04/25/2025 3:2 4 PM CDT 04/25/2025 3:41 PM CDT us Brenda Nolasco MD ECG ORDERABLES Edited Result - Final [facility] from Last 3 Months Insurance ANTHEM * Guarantor: MADAI RASMUSSEN Account Type Relation to Patient Date of Phone Billing Address Personal/Family Spouse Care Teams Rough Patcher Relationship Specialty Start Date End Date Genesis Spencer PA-C PCP - General Physician Executive Vice President And Chief Financial Officer Medical 07/23/24
--- OUTSIDE RECORDS SUMMARY | 2025-05-14 22:57 | XMS_ITS | Continuity of Care Document ---
Author Organization [facility] Address [address] [place] [address] Phone Care Team Providers Care Certified Fraud Examiner Name Role Phone Ray Rowley MD Unavailable Unavailable Allergies, Adverse Reactions, Alerts Substance Reaction Status Criticality No Known Allergies Active No Inform ation Medications Medication Instructions Dosage Effective Dates (start - stop) Status Comments Effexor XR 150 mg capsule,extended release take 1 capsule by oral route every day 150 MG - Active [place] Thyroid 60 mg tablet take 1 tablet by oral route every day 60 MG - Active [place] Thyroid 15 mg tablet take one po daily - Active Procedures Procedure Date PREV VISIT, [...] Diagnoses Date Provider Providers Copied on Encounter [facility], [address] [facility] [address] [facility] [address] [facility] [place], [id number], [place] tel:[phone] [facility] No Information 4 Amrik Russell [address], [address], [place], [place], [address] , [place]. tel:[phone] PREV VISIT, EST, AGE 40-64 [facility], [address], [place], [place], [address], [place] tel:[phone] [facility] physical (chief complaint) Encounter for general adult medical exam w abnormal findingsHypothyroid ismGeneralized Anxiety DisorderMixed irritable bowel syndromeAbnormal weight loss 4 Amrik Bell. [address], [address], [place], [place], [address] , [place]. [phone] OFFICE/OUTPA TIENT VISIT, [facility], [address], [place], [place], [address], [place] tel:[phone] [facility] shingle1 (chief complaint) IBS (chief complaint) Mixed irritable bowel syndromeZoster without complications 3 Amrik Bell. [address], [address], [place], [place], [address] , [place]. tel:[phone] OFFICE/OUTPA TIENT VISIT, EST [facility], [address], [place], [place], [address], [place] tel:[phone] [facility] IBS- (chief complaint) anxiety1 (chief complaint) Mixed irritable bowel syndromeGeneralized Anxiety Disorder 2 Amrik Russell [address], [address], [place], [place], [address] , [place]. tel:[phone] OFFICE/OUTPA TIENT VISIT, EST [facility], [address], [place], [place], [address], [place] tel:[phone] [facility] IBS1 (chief complaint) vasomotor1 (chief complaint) anxitey1 (chief complaint) toenail1 (chief complaint) Mixed irritable bowel syndromeGeneralized Anxiety DisorderIrregular periodOther nail disorders 2 Rowley Ray. [address], [place], [place], [address] , [place]. tel:[phone] PREV VISIT, EST, AGE 40-64 [facility], [address], [place], [place], [address], [place] tel:[phone] [facility] physical (chief complaint) Encounter for general adult medical exam w abnormal findingsGeneralized Anxiety DisorderDisorder of bilirubin metabolism, unspecifiedHypothyr oidismIrregular periodMixed irritable bowel syndrome Jun-0 2 Amrik Ray. [address], [place], [place], [address] , [place]. tel:[phone] OFFICE/OUTPA TIENT VISIT, EST [facility], [address], [place], [place], [address], [place] tel:[phone] [facility] eyelid (chief complaint) anxiety1 (chief complaint) Generalized Anxiety DisorderDisorder of eyelid 2 Amrik Ray. [address], [place], [place], [address] , [place]. tel:[phone] OFFICE/OUTPA TIENT VISIT, EST [facility], [address], [place], [place], [address], [place] tel:[phone] [facility] eye twitching1 (chief complaint) anxiety1 (chief complaint) bili (chief complaint) Generalized Anxiety DisorderDisorder of bilirubin metabolism, unspecifiedDisorder of eyelid 2 Amrik Ray. [address], [place], [place], [address] , [place]. tel:[phone] OFFICE/OUTPA TIENT VISIT, EST [facility], [address], [place], [place], [address], [place] tel:[phone] [facility] sick (chief complaint) bili (chief complaint) Acute laryngitisDisorder of bilirubin metabolism, unspecified Apr- 2 Amrik Ray. [address], [place], [place], [address] , [place]. tel:[phone] OFFICE/OUTPA TIENT VISIT, EST [facility], [address], [place], [place], [address], tel:[phone] [facility] eye1 (chief complaint) bili (chief complaint) iron (chief complaint) Disorder of bilirubin metabolism, unspecifiedHordeolu m externum of right eyelidDisorder of iron metabolism, unspecified 2 Amrik Bell. [address], [place], [place], [address] , [place]. [phone] OFFICE/OUTPA TIENT VISIT, [facility], [address], [place], [place], [address], [place] tel:[phone] [facility] bilirubin1 (chief complaint) iron (chief complaint) hypothyroi dism1 (chief complaint) HypothyroidismDisor kelly of bilirubin metabolism, unspecifiedDisorder of iron metabolism, unspecified Sep-0 1 Amrik Bell. [address], [place], [place], [address] , [place]. [phone] PREV VISIT, NEW, AGE 40-64 [facility], [address], [place], [place], [address], [place] tel:[phone] [facility] physical (chief complaint) Encounter for general adult medical exam w abnormal findingsLumbagoMedi al epicondylitis, left elbowPain in right kneeHypothyroidismE ssential (primary) hypertension 1 Amrik Russell [address], [place], [place], [address] , [place]. [phone] Family History Family Member Type Diagnosis Age At Onset Mother Problem breast CA, 48 Mother Problem grave disease Mother Problem HTN Mother Problem anxiety Mother Problem Crohn disease Payers Payer name Insurance type Covered libertarian ID Authoriza tion(s) No Information Social History [...] hot flush and irregular period. 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
[2025-05-15 00:54] VITALS: BP 116/82; PULSE 87; RESP 16; O2SAT 99
== END 2025-05-15 00:56 | disposition home or self-care (01) ==
PROVIDERS: Emergency Medicine; Emergency Provider Student in an Organized Health Care Education/Training Program
DX: R00.2 Palpitations (principal); F32.A Depression, unspecified; E03.9 Hypothyroidism, unspecified
CPT/HCPCS: 36415; 71046; 80053; 83690; 84484; 85025; 85380; 85610; 85730; 93005; 99284; A9270

== ENCOUNTER 2025-06-05 13:02 | Outpatient (CLI) | payer BC, SELFPAY ==
--- OUTSIDE RECORDS SUMMARY | 2025-06-05 13:08 | XMS_ITS | Clinical Summary ---
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 on 09/19/2020, 12/18/2021 and 02/18/2023. The breasts [...] compared to prior imaging studies performed at [facility] on 09/19/2020, 12/18/2021 and 02/18/2023. The breasts [...] to Health Maintenance Insurance ANTHEM ACCESS BLUE [employer] [facility] [place] [address] ANTHEM ACCESS CHOICE Care Teams Furnace And Wash Equipment Operator Relationship Specialty Start Date End Date Ray Rowley MD [address] [place] [address] [place] [address] PCP - General Family Medicine 10/28/21
--- OUTSIDE RECORDS SUMMARY | 2025-06-05 13:08 | XMS_ITS | Clinical Summary ---
Author Organization [facility] Address [address] [facility] [place] [address] Care Team Providers Care Educational Institution Curator Name Role Phone Genesis Spencer PA-C Primary Care Provider [phone] Source Comments [facility],non-owned Affiliates and Associated Physician Practices is amultiple site organization consisting of ambulatory clinics and hospital sitesin [place], [place], [place] and [place]. This disclosure is being madepursuant to the Care Everywhere program and may not contain all information available regarding this patient. Last updated 18.[facility] Allergies No known active allergies Medications * [...] Department Care Team Description 04/28/2025 Results Follow-Up [facility] - Family Medicine [address] [place] [address] Brenda Nolasco MD 04/25/2025 2:40 PM CDT Office Visit [facility] - Family Medicine [address] [place] [address] Brenda Nolasco MD Heart palpitations (Primary Dx); Acquired hypothyroidism; Syncope, unspecified syncope type 04/25/2025 Travel from Last 3 Months Immunizations Immunization Administration Dates Next Due Qual [place] primary monoval ent 12+ yr 0.3mL Purple [...] Procedure Name Priority Date/Time Associated Diagnosis Comments CARDIAC HOLTER MONITOR ORDER 05/21/2025 THYROID AB PANEL (TPO AB+THYROGLOB AB) Routine 04/25/2025 3:52 PM CDT Heart palpitations Acquired hypothyroidism T4 FREE Routine 04/25/2025 3:52 PM CDT Heart palpitations Acquired hypothyroidism TSH Routine 04/25/2025 3:52 PM CDT Heart palpitations Acquired hypothyroidism EKG 12-LEAD Routine 04/25/2025 3:24 PM CDT Heart palpitations from Last 3 Months Results * CARDIAC HOLTER MONITOR ORDER (05/21/2025) Narrative 05/21/2025 Ordered by an unspecified provider. us Scanned Document CARDIAC SERVICES ORDERABLES Fin al Result * THYROID AB PANEL (TPO AB+THYROGLOB AB) (04/25/2025 3:52 PM CDT) Thyroid Peroxidase TPO Antibody 20 0 - 34 IU/mL [facility] INSURANCE BILL Thyroglobulin Antibody <1.0 0.0 - 0.9 IU/mL [facility] INSURANCE BILL Comment: Thyroglobulin Antibody measured by [employer] Methodology It should be noted that the presence of thyroglobulin antibodies may not be pathogenic nor diagnostic, especially at very low levels. The assay transportation planning engineer has found that four percent of individuals without evidence of thyroid disease or autoimmunity will have positive TgAb levels up to 4 IU/mL. Blood BLOOD SPECIMEN / Unknown 04/25/2025 3:52 PM CDT 04/25/2025 Narrative [facility] INSURANCE BILL - 04/28/2025 3:09 PM CDT Performed at: [address] [place] [id number] Vice President Of Business Development: Shady Portillo PhD, Phone: [phone] Brenda Nolasco MD LAB - CHEMISTRY ORDERABLES Fin al Result Performing Organization Address [facility] Phone Number [facility] INSURANCE BILL [address] [place] [address] * TSH (04/25/2025 3:52 PM CDT) TSH 2.950 0.450 - 4.500 uIU/mL [facility] INSURANCE BILL Blood BLOOD SPECIMEN / Unknown 04/25/2025 3:52 PM CDT 04/25/2025 Narrative [facility] INSURANCE BILL - 04/26/2025 7:37 AM CDT Performed at: [address] [place] [id number] Vice President Of Business Development: Shady Portillo PhD, Phone: [phone] Brenda Nolasco MD LAB - CHEMISTRY ORDERABLES Fin al Result Performing Organization Address [facility] Phone Number [facility] INSURANCE BILL [address] [place] [address] * (ABNORMAL) T4 FREE (04/25/2025 3:52 PM CDT) T4 Free 0.54(L) 0.82 - 1.77 ng/dL [facility] INSURANCE BILL Blood BLOOD SPECIMEN / Unknown 04/25/2025 3:52 PM CDT 04/25/2025 Narrative [facility] INSURANCE BILL - 04/26/2025 7:37 AM CDT Performed at: - [facility] [address] [place], [place] [id number] Vice President Of Business Development: Shady Portillo PhD, Phone: [phone] us Brenda Nolasco MD LAB - CHEMISTRY ORDERABLES Fin al Result [facility] INSURANCE BILL [address] [place] [address] * EKG in Clinic (04/25/2025 3:24 PM CDT) Ventricular Rate 80 BPM [facility] Atrial Rate 80 BPM [facility] P-R Interval 138 ms [facility] QRS Duration ms 90 ms [facility] Q-T Interval ms 368 ms [facility] QTC Calculation (Bezet) 424 ms [facility] Calculated P [place] 66 degrees [facility] Calculated R [place] 70 degrees [facility] Calculated T [place] 55 degrees [facility] Interpretation EKG NORMAL SINUS RHYTHM WITH SINUS ARRHYTHMIA NORMAL ECG NO PREVIOUS ECGS AVAILABLE Confirmed by BRENDA NOLASCO MD ([id number]) on 04/25/2025 3:41:52 PM [facility] 04/25/2025 3:24 PM CDT 04/25/2025 3:41 PM CDT us Brenda Nolasco MD ECG ORDERABLES Edited Result - Final Performing Organization Address [facility] Co de Phone Number [facility] from Last [address] [place] [address] [facility] * Guarantor: MADAI RASMUSSEN Account Type Relation to Patient Date of Phone Billing Address Personal/Family Spouse Care Teams Educational Institution Curator Relationship Specialty Start Date End Date Genesis Spencer PA-C PCP - General Physician [employer] [employer] [facility] 07/23/24
[2025-06-05 13:27] LABS: Alanine Aminotransferase 16 U/L (6-35); Albumin Level 4.5 g/dL (3.5-5.1); Alkaline Phosphatase 64 U/L (38-126); Aspartate Amino Transferase 28 U/L (14-36); Bilirubin,Total 0.7 mg/dL (0.2-1.3); Total Protein 7.5 g/dL (6.3-8.2)
== END 2025-06-05 13:03 | disposition home or self-care (01) ==
LOC: ANHLAB 13:03
PROVIDERS: Visit Provider Obstetrics & Gynecology
DX: N95.1 Menopausal and female climacteric states (principal)
CPT/HCPCS: 36415; 80076